=== PATIENT | female | born 1965 | race Caucasian/White ===

== ENCOUNTER 2018-01-19 15:54 | Emergency (ER) | payer OTHER, SELFPAY ==
[2018-01-19 16:04] VITALS: BP 136/80; PULSE 82; RESP 20; TEMP 36.6; O2SAT 98; BMI 26.4
--- NOTE | 2018-01-19 16:53 | ED_ITS ---
HPI - Eye Problem General Chief complaint: Eye Problems Stated complaint: painful rt eye x4 days Time Seen by Provider: 01/19/18 16:52 Source: patient Mode of arrival: ambulatory Limitations: no limitations History of Present Illness HPI Narrative: Patient is a 52-year-old female who presents with 4 days of right eye irritation. She is actually sent in from the walk-in clinic concern for preseptal or orbital cellulitis. She initially had some discharge and eye irritation however now she has surrounding erythema and mild swelling. She denies any blurry vision or double vision she does were glasses. chief complaint: eye pain and eye redness Onset (ago): day(s) (4) Related Data Home Medications Medication Instructions Recorded Confirmed Control Pill ( Control) 1 tab PO EVERY DAY #0 12/18/07 01/19/18 Topiramate (Topamax) 50 mg PO *Q DAY #0 12/18/07 01/19/18 Previous Rx's Medication Instructions Recorded erythromycin 0.5 inch EYE-RIGHT Q4HRWA 7 Days 01/19/18 #3.5 gram sulfamethoxazole-trimethoprim 1 tab PO BID 5 Days #20 tab 01/19/18 [Bactrim DS] tramadol 50 mg PO Q6H PRN #10 tab 01/19/18 Allergies Allergy/AdvReac Type Severity Reaction Status Date / Time Penicillins Allergy Severe anaphylaxis Verified 01/19/18 17:19 Review of Systems Review of Systems All systems reviewed & are unremarkable except as noted in HPI and below Constitutional Denies chills, Denies fever(s), Denies lethargy and Denies weakness Eyes Reports as per HPI ENT Ears, Nose, Mouth, and Throat: Denies change in voice, Denies neck pain and Denies sore throat Cardiovascular Denies chest pain, Denies irregular heart rhythm, Denies lightheadedness, Denies palpitations, Denies dyspnea, Denies dyspnea on exertion and Denies orthopnea Respiratory Denies cough, Denies dyspnea, Denies dyspnea on exertion and Denies wheezing Gastrointestinal Gastrointestinal: Denies abdominal pain, Denies change in bowel habits, Denies diarrhea, Denies nausea and Denies vomiting Genitourinary Denies hematuria, Denies flank pain, Denies urinary incontinence and Denies urinary urgency Musculoskeletal Denies neck pain Integumentary/Breasts Reports as per HPI and Reports erythema Neurologic Denies weakness Endocrine Denies palpitations Allergic/Immunologic Denies wheezing PFSH Medical History Healthy adult (Acute) Social History Smoking Status: Current every day smoker Exam Initial Vital Signs Initial Vital Signs: Vital Signs Temperature 97.9 F 01/19/18 16:04 Pulse Rate 82 01/19/18 16:04 Respiratory Rate 20 01/19/18 16:04 Blood Pressure 136/80 01/19/18 16:04 Pulse Oximetry 98 01/19/18 16:04 GENERAL: Well-appearing, well-nourished and in no acute distress. HEENT: Head atraumatic,EOMI, pupils reactive, mild erythema or periorbital all right eye. Mild swelling. No ptosis. Some tenderness superiorly while looking down but no obvious swelling CARDIOVASCULAR: Regular rate and rhythm without murmurs, rubs or gallops. RESPIRATORY: Breath sounds equal bilaterally, no wheezes rales or rhonchi. ABDOMEN: Soft, nontender. Normoactive bowel sounds all 4 quadrants. No guarding or rebound. EXTREMITIES: Normal range of motion, no clubbing or edema. Neurovascularly intact NEUROLOGICAL: Alert and oriented x4.Normal gait and speech. Cranial nerves II through XII grossly intact. SKIN: Warm, dry, no laceration, no petechiae, no rashes or lesions. Eyes Eyelids: eyelid abnormality right upper eyelid erythema, lid margins crusty and scaly and swelling; with no ptosis and right lower eyelid erythema, lid margins crusty/salty and swelling Conjunctivae: conjunctival abnormality right subconjunctival hemorrhage Cornea: corneas normal and fluorescein used (Right eye is stained with fluorescein) Pupils: PERRL EOM: EOM intact bilaterally Course Orders Ordered: Discontinued Medications Erythromycin (Erythromycin Ophth Oint) 1 applic EYE-RIGHT NOW ONE Stop: 01/19/18 18:12 Last Admin: 01/19/18 18:52 Dose: 1 applic Levofloxacin (Levaquin) 750 mg in 150 mls @ 100 mls/hr IV NOW ONE Stop: 01/19/18 18:38 Last Admin: 01/19/18 17:40 Dose: 100 mls/hr Sodium Chloride (Normal Saline 0.9%) 1,000 mls @ 1,000 mls/hr IV BOLUS ONE Stop: 01/19/18 18:08 Last Infusion: 01/19/18 18:53 Dose: 0 mls/hr Admin: 01/19/18 17:30 Dose: 1,000 mls/hr Ketorolac Tromethamine (Toradol) 30 mg IV NOW ONE Stop: 01/19/18 17:39 Last Admin: 01/19/18 17:39 Dose: 30 mg Proparacaine HCl (Parcaine 0.5% Ophth Fiona) 1 drops EYE-RIGHT NOW ONE Stop: 01/19/18 17:44 Last Admin: 01/19/18 17:44 Dose: 1 drop Tramadol HCl (Ultram 50mg Prepack) 1 bottle MISC SEEINSTR ONE Stop: 01/19/18 18:24 Last Admin: 01/19/18 18:52 Dose: 1 bottle Vital Signs - 8 hr 01/19/18 16:04 Temperature 97.9 F Pulse Rate 82 Respiratory Rate 20 Blood Pressure 136/80 Pulse Oximetry 98 MDM - Eye Problem Lab Data Attestation: I reviewed the patient's lab results. Result diagrams: 01/19/18 17:28 01/19/18 17:28 Lab Results 01/19/18 01/19/18 01/19/18 Range/Units 17:28 17:28 17:28 WBC 7.4 (4.5-11.0) X10^3/uL RBC 4.42 (4.0-5.2) X10^6/uL Hgb 14.6 (12.0-16.0) g/dL Hct 42.3 (36-46) % MCV 95.7 (80-100) fL MCH 33.0 (26-34) PG MCHC 34.5 (30-36) % RDW 13.6 (11.6-14.8) % Plt Count 247 (150-400) X10^3/uL Neut % (Auto) 55.9 (50-75) % Lymph % (Auto) 27.0 (25-40) % [place] % (Auto) 12.0 (3-14) % Eos % (Auto) 4.4 H (2-4) % Baso % (Auto) 0.7 (0-2) % Neut # (Auto) 4100 (6068-7962) /uL Sodium 141 (137-145) mmol/L Potassium 3.7 (3.4-5.1) mmol/L Chloride 103 (98-107) mmol/L Carbon Dioxide 26 (22-32) mmol/L BUN 10 (7-17) mg/dL Creatinine 0.60 (0.52-1.04) mg/dL Estimated GFR > 60.0 (>60) mL/min BUN/Creatinine Ratio 16.7 (6-22) Glucose 105 H (70-100) mg/dL Lactate 0.7 (0.7-2.1) mmol/L Calcium 9.7 (8.4-10.2) mg/dL [facility] Narrative Medical decision making narrative: Patient has an anaphylactic reaction to penicillin. At this time I think this is more preseptal cellulitis rather than orbital cellulitis. At this time will treat her with Bactrim to help cover for MRSA. Will hold on imaging for now. I discussed all findings with the patient, Education has been performed regarding treatment plan, diagnosis, warning signs and symptoms and all concerns have been addressed. Verbally agree with and understood all of the above. Discharge Plan Departure Patient Disposition: Home Clinical Impression: Preseptal cellulitis, Acute conjunctivitis, right eye Discharge Date/Time: 01/19/18 19:13 Interventions: ED Discharge Assessment Last Done: 01/19/18 19:13 Instructions: Conjunctivitis Activity Restrictions/Additional Instructions: *You have been diagnosed with preseptal cellulitis, right conjunctivitis *What to do: Tylenol, ibuprofen *Continue to take medications as directed: Faxed to [facility] in [place] Bactrim 1 pill twice a day for 10 days Tramadol 1 tablet every 6 hr if needed for severe pain Erythromycin ointment half an inch every 4 hr while awake for *Follow up with your primary care provider in 2-3 days *Return to ER if you should have worsening or redness increased pain, decreased vision or any new, worsening or concerning symptoms Prescriptions: New sulfamethoxazole-trimethoprim [Bactrim DS] 800-160 mg tablet 1 tab PO BID 5 Days Qty: 20 RF: 0 erythromycin 5 mg/gram (0.5 %) ointment 0.5 inch EYE-RIGHT Q4HRWA 7 Days Qty: 3.5 RF: 0 tramadol 50 mg tablet 50 mg PO Q6H PRN (Reason: pain) Qty: 10 RF: 0 No Action Control Pill ( Control) 1 tab PO EVERY DAY Qty: 0 RF: 0 Topiramate (Topamax) 50 mg PO *Q DAY Qty: 0 RF: 0
[2018-01-19] MEDS: SODIUM CHLORIDE 0.9% 1,000 ML 1000 ML IV (17:30)
[2018-01-19 17:36] LABS: Add Manual Diff / Slide Review NO; Basophils Percent Auto 0.7 % (0-2); Eosinophils Percent Auto 4.4 % (2-4); Hematocrit 42.3 % (36-46); Hemoglobin 14.6 g/dL (12.0-16.0); Mean Corpuscular HGB Conc 34.5 % (30-36); Mean Corpuscular Volume 95.7 fL (80-100); Neutrophils Absolute Auto 4100 /uL (3000-5900); Neutrophils Percent Auto 55.9 % (50-75); Platelet Count 247 X10^3/uL (150-400); Red Blood Cell Count 4.42 X10^6/uL (4.0-5.2); Red Cell Distribution Width 13.6 % (11.6-14.8); White Blood Cell Count 7.4 X10^3/uL (4.5-11.0)
[2018-01-19] MEDS: KETOROLAC 60 MG/2 ML VIAL 30 MG IV (17:39)
[2018-01-19] MEDS: levoFLOXacin 750 MG/150 ML PIGGYBACK 100 MG IV (17:40)
[2018-01-19] MEDS: PROPARACAINE 0.5% OPHTH SOL 1 DROPS EYE-RIGHT (17:44)
[2018-01-19 17:52] LABS: BUN Creatinine Ratio 16.7 (6-22); Blood Urea Nitrogen 10 mg/dL (7-17); Calcium 9.7 mg/dL (8.4-10.2); Carbon Dioxide 26 mmol/L (22-32); Chloride 103 mmol/L (98-107); Estimated Glomerular Filt Rate > 60.0 mL/min (>60); Glucose 105 mg/dL (70-100); HEMOLYSIS < 15 (0-50); Lactate (Lactic Acid) 0.7 mmol/L (0.7-2.1); Potassium 3.7 mmol/L (3.4-5.1); Sodium 141 mmol/L (137-145)
[2018-01-19 18:04] VITALS: BP 139/71; PULSE 75; RESP 17; O2SAT 99
[2018-01-19] MEDS: ERYTHROMYCIN OPHTH 1 GM OINT 1 APPLIC EYE-RIGHT (18:52)
[2018-01-19] MEDS: TRAMADOL 50 MG PREPACK 1 BOTTLE MISC (18:52)
[2018-01-19 19:13] VITALS: BP 124/91; PULSE 70; RESP 18; O2SAT 98
--- NOTE | 2018-02-03 15:53 | PC.NURSE ---
late entry. levaquin infused at 1840 without incident. tolerated well no adverse reactions.
== END 2018-01-19 19:13 | disposition home or self-care (01) ==
PROVIDERS: Emergency Provider Emergency Medicine
DX: L03.213 Periorbital cellulitis (principal); H10.31 Unspecified acute conjunctivitis, right eye
CPT/HCPCS: 36415; 36591; 80048; 83605; 85025; 87040; 96365; 96375; 99283; 99284; J1885; J1956

== ENCOUNTER → 2022-07-19 10:31 | Outpatient (CLI) | payer OTHER, SELFPAY | PROVIDERS: Visit Provider Nurse Practitioner Family | DX: L02.91 Cutaneous abscess, unspecified (principal) | CPT/HCPCS: 87070; 87075; 87205 ==

== ENCOUNTER 2024-01-05 13:29 | Emergency (ER) | payer OTHER, SELFPAY ==
[2024-01-05] VITALS (7 sets, daily range): BP systolic 133–147; BP diastolic 65–86; PULSE 77–99; RESP 19–21; TEMP 36.9; O2SAT 95–97; BMI 28.1
--- NOTE | 2024-01-05 13:53 | ED.HEATRA ---
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 She reports she was out sitting outside on the patio stood up in the dog tripped her hitting her head on the right side. No loss of consciousness no nausea or vomiting. However since then she has been quite dizzy. She does not think that she was dizzy or having issues before she fell. She is relatively forgetful daughter says this is normal. She has no focal deficits she did have hematoma on the right side. No visual changes. She denies any chest pain or palpitations. Daughter reports that she has not with her body either. She denies any neck pain numbness tingling weakness Related Data Home Medications Medication Instructions Recorded Confirmed Control Pill ( Control) 1 tab PO EVERY DAY ##0 12/18/07 07/19/22 Topiramate (Topamax) 50 mg PO *Q DAY ##0 12/18/07 07/19/22 Previous Rx's Medication Instructions Recorded tramadol 50 mg tablet 50 mg PO Q6H PRN pain #10 tabs 01/19/18 ondansetron 4 mg disintegrating 4 mg PO Q6-8H PRN nausea and 04/27/18 tablet vomiting #30 tabs sumatriptan succinate 25 mg tablet 25 mg PO ONCE #60 tabs 04/27/18 Allergies Allergy/AdvReac Type Severity Reaction Status Date / Time Penicillins Allergy Severe anaphylaxis Verified 07/19/22 10:01 Patient History Medical History (Updated 01/05/24 @ 15:31 by Marti Suarez DO) Healthy adult Social History Smoking Status: Current every day smoker Smoking Status: Current every day smoker alcohol intake frequency: holidays/special occasions only Substance Use Type: marijuana Exam Initial Vital Signs Initial Vital Signs: Vital Signs Pulse Rate 99 H 01/05/24 13:34 Blood Pressure 147/86 H 01/05/24 13:34 Pulse Oximetry 95 01/05/24 13:34 GENERAL: Well-appearing 58-year-old female HEENT: Head atraumatic,EOMI, pupils reactive, no nystagmus face symmetric, moist mucous membranes NECK: No vertebral tenderness no step-off full range of motion CARDIOVASCULAR: Regular rate and rhythm without murmurs, rubs or gallops. RESPIRATORY: Breath sounds equal bilaterally, no wheezes rales or rhonchi. ABDOMEN: Soft, nontender. Normoactive bowel sounds all 4 quadrants. No guarding or rebound. EXTREMITIES: Normal range of motion, no clubbing or edema. Neurovascularly intact NEUROLOGICAL: Alert and oriented x2.Normal gait and speech. Cranial nerves II through XII grossly intact. Good [id number], good [id number], strength equal bilaterally, no dysarthria or aphasia, sensation in tact to soft touch bilaterally, no visual changes, no facial droop SKIN: Warm, dry, no laceration, no petechiae, no rashes or lesions. Scores NIH Stroke Scale Level of Conciousness: Alert, keenly responsive Ask month/age: Answers both questions correctly. Open/close eyes, close hand: Performs both tasks correctly Best gaze horizontal: Normal Visual sen: No visual loss Facial palsy: Normal symetrical movement Left arm drift: No drift for full 10 sec Right arm drift: No drift for full 10 sec Left leg drift: No drift for full 5 sec Right leg drift: No drift for full 5 sec Limb ataxia: Absent Sensory on face/arms/legs: Normal, no sensory loss Best language: No aphasia, normal Dysarthria: Normal Extinction or inattention: No abnormality Total NIH Stroke scale score: 0 Course Orders Ordered: ED Orders 01/05/24 14:05 CT head/brain wo con Stat XR chest 1V Stat Complete Blood Count AUTO DIFF Stat Comprehensive Metabolic Panel Stat Lipase Stat Troponin & CK Cardiac Panel Stat EKG-12 Lead Stat Sodium Chloride (Normal Saline 0.9%) 1,000 mls @ 1,000 mls/hr IV BOLUS ONE Stop: 01/05/24 15:35 Last Infusion: 01/05/24 15:29 Dose: Infused Documented By: Admin: 01/05/24 14:48 Dose: 1,000 mls/hr Documented By: [place] Vital Signs Vital signs: Vital Signs - 8 hr 01/05/24 13:34 01/05/24 13:34 01/05/24 13:38 Temperature 98.5 F Pulse Rate 99 H 95 H Respiratory Rate 20 Blood Pressure 147/86 H 147/86 H Pulse Oximetry 95 97 Oxygen Delivery Method Room Air 01/05/24 14:00 01/05/24 14:30 01/05/24 14:49 Temperature Pulse Rate 88 82 81 Respiratory Rate Blood Pressure Pulse Oximetry 96 96 96 Oxygen Delivery Method 01/05/24 14:49 01/05/24 15:00 01/05/24 15:01 Temperature Pulse Rate 77 Respiratory Rate 21 Blood Pressure 134/65 133/69 Pulse Oximetry 96 Oxygen Delivery Method 01/05/24 15:01 Temperature Pulse Rate 77 Respiratory Rate 19 Blood Pressure Pulse Oximetry 97 Oxygen Delivery Method MDM - Head Injury Lab Data 01/05/24 14:30 01/05/24 14:30 Labs: Lab Results 01/05/24 Range/Units 14:30 WBC 7.5 (4.5-11.0) X10^3/uL RBC 4.19 (4.0-5.2) X10^6/uL Hgb 12.9 (12.0-16.0) g/dL Hct 38.7 (36-46) % MCV 92.3 (80-100) fL MCH 30.8 (26-34) PG MCHC 33.3 (30-36) % RDW 14.5 (11.6-14.8) % Plt Count 272 (150-400) X10^3/uL Neut % (Auto) 58.2 (50-75) % Lymph % (Auto) 27.7 (25-40) % [place] % (Auto) 7.0 (3-14) % Eos % (Auto) 6.1 H (2-4) % Baso % (Auto) 1.0 (0-2) % Neut # (Auto) 4400 (0981-5818) /uL Lymph # (Auto) 2100 (9318-0418) /uL [place] # (Auto) 500 (0-900) /uL Eos # (Auto) 500 H (0-450) /uL Baso # (Auto) 100 (0-100) /uL Sodium 137 (137-145) mmol/L Potassium 4.4 (3.4-5.1) mmol/L Chloride 105 (98-107) mmol/L Carbon Dioxide 27 (22-32) mmol/L BUN 8 (7-17) mg/dL Creatinine 0.70 (0.52-1.04) mg/dL Estimated GFR > 60 (>60) mL/min BUN/Creatinine Ratio 11.4 (6-22) Glucose 77 (70-100) mg/dL Calcium 9.4 (8.4-10.2) mg/dL Total Bilirubin 0.8 (0.2-1.3) mg/dL AST 37 H (14-36) IU/L ALT 18 (<35) IU/L Alkaline Phosphatase 86 (38-126) U/L Total Creatine Kinase 64 (30-135) U/L Troponin I < 0.012 (0.01-0.034) ng/mL Total Protein 7.8 (6.3-8.2) g/dL Albumin 4.6 (3.5-5.0) g/dL Globulin 3.2 (1.7-4.1) g/dL Albumin/Globulin Ratio 1.4 (1.0-2.8) Lipase 43 (23-300) U/L Imaging Data CT scan - head: Radiologist's Impression: PROCEDURE: CT HEAD/BRAIN WO CON INDICATIONS: fall dizzy confusion TECHNIQUE: Noncontrast 4.5 mm thick angled axial sections acquired from the foramen magnum to the vertex, with coronal and sagittal reformats. For radiation dose reduction, the following was used: automated exposure control, adjustment of mA and/or kV according to patient size. COMPARISON: None. FINDINGS: Image quality: Diagnostic. CSF spaces: Basal cisterns are patent. No extra-axial fluid collections. The ventricles are symmetric in size and shape. Brain: No intracranial bleeds or masses. There is cerebral volume loss for age, with resultant ventricular and sulcal prominence. There are periventricular and deep white matter chronic small vessel ischemic changes. There is intracranial internal carotid artery atherosclerosis. Skull and face: Calvarium and visualized facial bones appear intact, without suspicious lesions. Sinuses: Scattered ethmoid, frontal, sphenoid, and bilateral maxillary sinus mucosal thickening. Mastoid air cells are well aerated. IMPRESSION: 1. CT head without acute intracranial abnormalities or acute calvarial fractures. 2. Age-related senescent changes and sequela of chronic small vessel ischemic disease. 3. Pansinusitis. Dictated by: Wilfred Griggs M.D. on 01/05/2024 at 13:57 Chest x-ray: Radiologist's Impression: PROCEDURE: XR CHEST 1V INDICATIONS: confusion TECHNIQUE: One view of the chest was acquired. COMPARISON: None. FINDINGS: Surgical changes and devices: None. Lungs and pleura: Lungs are clear. No pleural effusions or pneumothorax. Mediastinum: Mediastinal contours appear normal. Heart size is normal. Bones and chest wall: No suspicious bony lesions. Overlying soft tissues appear unremarkable. IMPRESSION: No acute cardiopulmonary abnormality is seen. Dictated by: Wilfred Griggs M.D. on 01/05/2024 at 13:56 Approved by: Wilfred Griggs M.D. on 01/05/2024 at 13:57 ECG Data Attestation: I personally reviewed and interpreted this ECG as follows: Interpretation: Sinus rhythm rate 83 NE interval 146 QRS [address] changes priors to compare MDM Narrative Medical decision making narrative: Patient is a 58-year-old female history of TBI presenting today with dizzy dizziness after ground level fall. She has difficult time at baseline with month and year. She lives alone and is independent. Her daughter checks on her regularly. He has not had vomiting she did have hematoma on the right side of her head with a has gone down significantly no significant swelling. She reports ongoing dizziness. She does not think she was dizzy prior to the fall she thinks she dizzy only after the fall but sometimes her memory is unreliable Blood work reviewed no leukocytosis no anemia no electrolyte abnormality no SOLIS and troponin is negative EKG shows a sinus rhythm Head CT no intracranial hemorrhage or fracture Chest x-ray is negative Patient overall appears well neurologically she is intact. Daughter at bedside they live very close the patient does live independently. Patient is ambulatory in the ED without issue. At this time suspect more concussion and ongoing TV eye issues causing dizziness rather than other etiology. I do not suspect a cardiac issue. She has no neck pain I do not suspect dissection. She can follow-up with primary Discharge Plan Departure Patient Disposition: Home Clinical Impression: Closed head injury Instructions: DI for Closed Head Injury Activity Restrictions/Additional Instructions: *You have been diagnosed with concussion *What to do: At this time increase activity as tolerated. Please stay hydrated.. May consider physical therapy if you continue to have issues *Continue to take medications as directed *Follow up with your primary care provider in 2-3 days or call [phone] *Return to ER if you should have increasing weakness falls confusion or any new, worsening or concerning symptoms Prescriptions: No Action ondansetron 4 mg tablet,disintegrating 4 mg PO Q6-8H PRN (Reason: nausea and vomiting) Qty: 30 0RF sumatriptan succinate 25 mg tablet 25 mg PO ONCE Qty: 60 0RF Rx Instructions: may repeat once in >=2 hours Control Pill ( Control) 1 tab PO EVERY DAY Qty: 0 Topiramate (Topamax) 50 mg PO *Q DAY Qty: 0 tramadol 50 mg tablet 50 mg PO Q6H PRN (Reason: pain) Qty: 10 0RF Referrals: Miscellaneous,Doctor, MD [Primary Care Provider] - Stand Alone Forms: Patient Portal/API
--- NOTE | 2024-01-05 14:05 | EKG_ITS ---
[address] [address] Test Date: 2024-01-05 Pat Name: Judith Priest Department: [facility] Room: Gender: Female Doorperson: LORRAINE : 1965 Requested By: Order Number: [id number] Reading MD: Sami Mota Measurements Intervals [place] Rate: 83 P: 28 ME: 146 QRS: 36 QRSD: 74 T: 57 QT: 374 QTc: 439 Interpretive Statements Normal sinus rhythm Low voltage QRS Electronically Signed On 01-06-2024 7:16:57 PDT by Sami Mota
--- NOTE | 2024-01-05 14:05 | DI.RAD.S_ITS ---
PROCEDURE: XR CHEST 1V INDICATIONS: confusion TECHNIQUE: One view of the chest was acquired. COMPARISON: None. FINDINGS: Surgical changes and devices: None. Lungs and pleura: Lungs are clear. No pleural effusions or pneumothorax. Mediastinum: Mediastinal contours appear normal. Heart size is normal. Bones and chest wall: No suspicious bony lesions. Overlying soft tissues appear unremarkable. IMPRESSION: No acute cardiopulmonary abnormality is seen. Dictated by: Wilfred Griggs M.D. on 01/05/2024 at 13:56 Approved by: Wilfred Griggs M.D. on 01/05/2024 at 13:57
--- NOTE | 2024-01-05 14:05 | DI.CT.S_ITS ---
PROCEDURE: CT HEAD/BRAIN WO CON INDICATIONS: fall dizzy confusion TECHNIQUE: Noncontrast 4.5 mm thick angled axial sections acquired from the foramen magnum to the vertex, with coronal and sagittal reformats. For radiation dose reduction, the following was used: automated exposure control, adjustment of mA and/or kV according to patient size. COMPARISON: None. FINDINGS: Image quality: Diagnostic. CSF spaces: Basal cisterns are patent. No extra-axial fluid collections. The ventricles are symmetric in size and shape. Brain: No intracranial bleeds or masses. There is cerebral volume loss for age, with resultant ventricular and sulcal prominence. There are periventricular and deep white matter chronic small vessel ischemic changes. There is intracranial internal carotid artery atherosclerosis. Skull and face: Calvarium and visualized facial bones appear intact, without suspicious lesions. Sinuses: Scattered ethmoid, frontal, sphenoid, and bilateral maxillary sinus mucosal thickening. Mastoid air cells are well aerated. IMPRESSION: 1. CT head without acute intracranial abnormalities or acute calvarial fractures. 2. Age-related senescent changes and sequela of chronic small vessel ischemic disease. 3. Pansinusitis. Dictated by: Wilfred Griggs M.D. on 01/05/2024 at 13:57 Approved by: Wilfred Griggs M.D. on 01/05/2024 at 13:59
[2024-01-05 14:40] LABS: Add Manual Diff / Slide Review NO; Basophils Absolute Auto 100 /uL (0-100); Eosinophils Absolute Auto 500 /uL (0-450); Eosinophils Percent Auto 6.1 % (2-4); Hematocrit 38.7 % (36-46); Hemoglobin 12.9 g/dL (12.0-16.0); Lymphocytes Absolute Auto 2100 /uL (1100-4500); Lymphocytes Percent Auto 27.7 % (25-40); Mean Corpuscular HGB Conc 33.3 % (30-36); Mean Corpuscular Hemoglobin 30.8 PG (26-34); Mean Corpuscular Volume 92.3 fL (80-100); Monocytes Absolute Auto 500 /uL (0-900); Neutrophils Absolute Auto 4400 /uL (1500-7000); Neutrophils Percent Auto 58.2 % (50-75); Platelet Count 272 X10^3/uL (150-400); Red Blood Cell Count 4.19 X10^6/uL (4.0-5.2); Red Cell Distribution Width 14.5 % (11.6-14.8); White Blood Cell Count 7.5 X10^3/uL (4.5-11.0)
[2024-01-05] MEDS: SODIUM CHLORIDE 0.9% 1,000 ML 1000 ML IV (14:48)
[2024-01-05 14:52] LABS: Alanine Aminotransferase 18 IU/L (<35); Albumin 4.6 g/dL (3.5-5.0); Albumin Globulin Ratio 1.4 (1.0-2.8); Alkaline Phosphatase 86 U/L (38-126); Aspartate Aminotransferase 37 IU/L (14-36); BUN Creatinine Ratio 11.4 (6-22); Bilirubin Total 0.8 mg/dL (0.2-1.3); Blood Urea Nitrogen 8 mg/dL (7-17); Calcium 9.4 mg/dL (8.4-10.2); Carbon Dioxide 27 mmol/L (22-32); Chloride 105 mmol/L (98-107); Creatine Kinase 64 U/L (30-135); Estimated Glomerular Filt Rate > 60 mL/min (>60); Globulin 3.2 g/dL (1.7-4.1); Glucose 77 mg/dL (70-100); Lipase 43 U/L (23-300); Potassium 4.4 mmol/L (3.4-5.1); Sodium 137 mmol/L (137-145); Total Protein 7.8 g/dL (6.3-8.2)
[2024-01-05 14:54] LABS: HEMOLYSIS 58 (0-50)
[2024-01-05 15:04] LABS: Troponin I < 0.012 ng/mL (0.01-0.034)
== END 2024-01-05 15:29 | disposition home or self-care (01) ==
PROVIDERS: Emergency Provider Emergency Medicine
DX: S09.90XA Unspecified injury of head, initial encounter (principal); R29.700 NIHSS score 0; R41.0 Disorientation, unspecified; R42 Dizziness and giddiness; W01.0XXA Fall on same level from slipping, tripping and stumbling without subsequent striking against object, initial encounter
CPT/HCPCS: 36415; 70450; 71045; 80053; 82550; 83690; 84484; 85025; 93005; 96360; 99284

== ENCOUNTER 2024-03-17 22:36 | Observation (INO) | payer OTHER, SELFPAY ==
[2024-03-17 22:39] VITALS: BP 183/95; PULSE 84; RESP 18; TEMP 36.9; O2SAT 98; BMI 25.8
--- NOTE | 2024-03-17 22:48 | DI.RAD.S_ITS ---
PROCEDURE: XR CHEST 1V INDICATIONS: Possible stroke TECHNIQUE: One view of the chest was acquired. COMPARISON: [facility], CR, XR CHEST 1V, 01/05/2024, 14:05. FINDINGS: Surgical changes and devices: None. Lungs and pleura: Lungs are clear. No pleural effusions or pneumothorax. Mediastinum: Mediastinal contours appear normal. Heart size is normal. Bones and chest wall: No suspicious bony lesions. Overlying soft tissues appear unremarkable. IMPRESSION: No acute pulmonary process. Dictated by: Marlene Biswas M.D. on 03/17/2024 at 23:33 Approved by: Marlene Biswas M.D. on 03/17/2024 at 23:33
--- NOTE | 2024-03-17 22:48 | DI.CT.S_ITS ---
PROCEDURE: CT STROKE INDICATIONS: Positive BE-FAST, Stroke symptoms TECHNIQUE: Noncontrast 4.5 mm thick angled axial sections acquired from the foramen magnum to the vertex, with coronal reformats. For radiation dose reduction, the following was used: automated exposure control, adjustment of mA and/or kV according to patient size. COMPARISON: [facility], CT, CT ANGIO HEAD AND NECK, 03/17/2024, 23:00. FINDINGS: Image quality: Diagnostic. CSF spaces: Basal cisterns are patent. No extra-axial fluid collections. Ventricles are normal in size and shape. Brain: No midline shift. No intracranial masses or hemorrhage. Velásquez-white matter interface is normal. Skull and face: Calvarium and visualized facial bones are intact, without suspicious lesions. Sinuses: Visualized sinuses and mastoids are clear. IMPRESSION: No acute intracranial pathology. The above findings were discussed with Dr. Jen Cannon on 03/17/2024 at 11:28 p.m. This study fulfills neurological imaging criteria for inclusion or exclusion of acute stroke therapies based on available published neurological imaging guidelines. Dictated by: Marlene Biswas M.D. on 03/17/2024 at 23:28 Approved by: Marlene Biswas M.D. on 03/17/2024 at 23:29
--- NOTE | 2024-03-17 22:50 | DI.CT.S_ITS ---
PROCEDURE: CT ANGIO HEAD AND NECK INDICATIONS: confused, fall 2 days, ? hit head, word loss, balance issue TECHNIQUE: After the administration of intravenous contrast, 1 mm thick sections acquired from the aortic arch through the [place]. 3-dimensional socfqsp-hsowwtyjt-dqspilkcvu (MIP) and/or volume rendering reformats were acquired of the central intracranial vasculature and neck separately. For radiation dose reduction, the following was used: automated exposure control, adjustment of mA and/or kV according to patient size. COMPARISON: [facility], CT, CT STROKE, 03/17/2024, 23:00. FINDINGS: Image quality: Diagnostic. BRAIN: See separately dictated CT head report of 03/17/2024. HEAD CT ANGIOGRAPHY: Anterior circulation: Intracranial internal carotid arteries are normal in size and flow. The flow within the paired anterior cerebral arteries is normal and symmetric. The flow within the middle cerebral arteries is normal and symmetric. The anterior communicating artery is seen. No aneurysms are seen. Posterior circulation: Left vertebral artery. Visualized portions of the vertebral arteries demonstrate normal caliber, and join to form a normal appearing basilar artery. Flow within the posterior cerebral arteries is normal and symmetric. No aneurysms are seen. NECK CT ANGIOGRAPHY: Carotid system: The great vessels demonstrate a conventional anatomy as they arise from the aortic arch. The origins of the common carotid arteries appear patent. The common carotid arteries demonstrate normal caliber and courses. The bifurcation regions are both widely patent. Approximate 50% narrowing at the origin the right internal carotid artery. Posterior circulation: The origins of the vertebral arteries both appear widely patent. The more superior extracranial portions of both vertebral arteries also demonstrate normal courses and calibers. They join to form a normal appearing basilar artery. Soft tissues: Visualized neck soft tissues demonstrate no suspicious abnormalities. Scattered mucosal thickening is present within the sinuses. Bones: No suspicious bony lesions. Visualized cervical spine appears normally aligned. IMPRESSION: Approximate 50% narrowing at the origin of the right internal carotid artery. Any quantitative measurements of stenosis were performed using NASCET criteria. Dictated by: Marlene Biswas M.D. on 03/17/2024 at 23:30 Approved by: Marlene Biswas M.D. on 03/17/2024 at 23:32
--- NOTE | 2024-03-17 22:52 | PC.NURSE ---
Pt ambulatory to restroom without difficulty or assistance
--- NOTE | 2024-03-17 22:58 | PC.NURSE ---
Pt to CT via wheel chair with tech
[2024-03-17 23:08] LABS: Add Manual Diff / Slide Review NO; Basophils Absolute Auto 100 /uL (0-100); Basophils Percent Auto 0.6 % (0-2); Eosinophils Absolute Auto 600 /uL (0-450); Eosinophils Percent Auto 6.3 % (2-4); Hematocrit 39.1 % (36-46); Lymphocytes Absolute Auto 2800 /uL (1100-4500); Lymphocytes Percent Auto 29.9 % (25-40); Mean Corpuscular HGB Conc 33.1 % (30-36); Mean Corpuscular Hemoglobin 30.6 PG (26-34); Mean Corpuscular Volume 92.3 fL (80-100); Monocytes Absolute Auto 600 /uL (0-900); Monocytes Percent Auto 6.9 % (3-14); Neutrophils Absolute Auto 5200 /uL (1500-7000); Neutrophils Percent Auto 56.3 % (50-75); Platelet Count 305 X10^3/uL (150-400); Red Blood Cell Count 4.24 X10^6/uL (4.0-5.2); Red Cell Distribution Width 14.8 % (11.6-14.8); White Blood Cell Count 9.3 X10^3/uL (4.5-11.0)
[2024-03-17 23:08] LABS: Ur Creatinine Normal (Normal); Ur Specific Gravity Normal (Normal); Urine Amphetamines Negative (Negative); Urine Barbiturates Negative (Negative); Urine Benzodiazepines Negative (Negative); Urine Cocaine Negative (Negative); Urine MDMA Negative (Negative); Urine Methadone Negative (Negative); Urine Methamphetamines Negative (Negative); Urine Opiates Negative (Negative); Urine Oxycodone Negative (Negative); Urine Phencyclidine Negative (Negative); Urine THC Negative (Negative); Urine Tricyclic Antidepressant Positive (Negative); Urine pH Normal (Normal)
--- NOTE | 2024-03-17 23:15 | PC.NURSE ---
Pt ambulatory to restroom without difficulty or assistance, daughter walked with.
[2024-03-17 23:16] LABS: INR 0.9 (0.9-1.3); Prothrombin Time 10.4 SECONDS (9.4-12.5)
[2024-03-17 23:18] LABS: PTT Partial Thromboplastin Tim 41 SECONDS (25.1-36.5)
[2024-03-17 23:20] LABS: Alanine Aminotransferase 15 IU/L (<35); Albumin 4.3 g/dL (3.5-5.0); Albumin Globulin Ratio 1.3 (1.0-2.8); Alkaline Phosphatase 76 U/L (38-126); Aspartate Aminotransferase 36 IU/L (14-36); BUN Creatinine Ratio 18.8 (6-22); Bilirubin Total 0.5 mg/dL (0.2-1.3); Blood Urea Nitrogen 15 mg/dL (7-17); Calcium 9.3 mg/dL (8.4-10.2); Carbon Dioxide 28 mmol/L (22-32); Chloride 106 mmol/L (98-107); Creatine Kinase 67 U/L (30-135); Estimated Glomerular Filt Rate > 60 mL/min (>60); Globulin 3.3 g/dL (1.7-4.1); Glucose 103 mg/dL (70-100); Magnesium 1.8 mg/dL (1.6-2.3); Sodium 138 mmol/L (137-145); Total Protein 7.6 g/dL (6.3-8.2)
--- NOTE | 2024-03-17 23:20 | EKG_ITS ---
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
[2024-03-17 23:23] LABS: HEMOLYSIS 98 (0-50); Potassium 4.3 mmol/L (3.4-5.1)
[2024-03-17 23:32] LABS: Troponin I < 0.012 ng/mL (0.01-0.034)
[2024-03-18] VITALS (7 sets, daily range): BP systolic 135–170; BP diastolic 73–106; PULSE 75–84; RESP 16–25; TEMP 36.4; O2SAT 95–97; BMI 25.8
--- NOTE | 2024-03-18 00:14 | ED_ITS ---
HPI - Altered Mental Status General Chief Complaint: Altered Mental Status Stated Complaint: Disoriented, Unable to form sentences Time Seen by Provider: 03/17/24 22:50 Source: patient and family Mode of arrival: Ambulatory History of Present Illness HPI narrative: 58-year-old female with a history of multiple TBIs presents with complaint being more confused, altered some dysarthria and being more off balance. Patient presents with her daughter. She sometimes has a little bit of difficulty with speech but her daughter describes something having to stop senior living through a sentence sort of forget where she was at and then we will either continue on or move onto a different topic. She states she was not even really been able to get through words, describes him as being more slurred that she was trouble even completing basic information. She was noted patient's gait she has been varying towards the left her gait seems different. Neither 1 appreciated any weakness laterally right versus left. Patient denies headaches, no chest pain or shortness of breath. No nausea or vomiting no issues with bowel movements or urination no incontinence. No numbness tingling of the extremities. No fevers chills cold cough or congestion. Patient does have a history of TBI daughter notes she has had some slow changes in mentation over time has been falling once annually with [facility]. She thought her mom was maybe having a little bit of a bad day but has been much worse than typical for the past 2 days. She does take amitriptyline reportedly takes olanzapine as well patient states has not taken any extra medications. Has not allergy to penicillin. Does smoke tobacco about a pack and a half weekly. No regular alcohol. No recreational drugs. Daughter notes that patient did have a fall in the last week spent about an hour so in the floor she would was weak and could not get off the floor. Has been ambulating today. Related Data Home Medications Medication Instructions Recorded Confirmed Control Pill ( Control) 1 tab PO EVERY DAY ##0 12/18/07 07/19/22 Topiramate (Topamax) 50 mg PO *Q DAY ##0 12/18/07 07/19/22 Previous Rx's Medication Instructions Recorded tramadol 50 mg tablet 50 mg PO Q6H PRN pain #10 tabs 01/19/18 ondansetron 4 mg disintegrating 4 mg PO Q6-8H PRN nausea and 04/27/18 tablet vomiting #30 tabs sumatriptan succinate 25 mg tablet 25 mg PO ONCE #60 tabs 04/27/18 Allergies Allergy/AdvReac Type Severity Reaction Status Date / Time Penicillins Allergy Severe anaphylaxis Verified 07/19/22 10:01 Review of Systems Review of Systems ROS Unobtainable: All systems reviewed & are unremarkable except as noted in HPI and below Patient History Medical History Healthy adult Social History Smoking Status: Current every day smoker Smoking Status: Current every day smoker tobacco type: cigarettes alcohol intake frequency: holidays/special occasions only Substance Use Type: marijuana Exam Narrative Exam Narrative: GEN: well nourished, well appearing female, alert and oriented x 3, patient appears to be in mild distress. HEENT: Atraumatic, pupils are equal round reactive to light, extraocular movements are intact, nares are clear, TMs are clear with no fluid, there is no conjunctival pallor. Throat is clear without any exudates, erythema, tonsillar enlargement or uvular deviation HEART: Regular rate and rhythm without murmur, clicks, rubs. No carotid bruits, pulses are equal in upper and lower extremities LUNGS:Lungs clear to auscultation, no wheezes, rales, crackles, chest moves symmetrically ABD:bowel sounds normal, soft, non-tender, no guarding, rebound, rigidity, no masses noted, no hepatosplenomegaly :No CVA tenderness MSCL: Non-tender, no muscle atrophy, muscles strength 5/5 upper and lower extremities, full range of motion. NEURO:CN 2-12 intact, sensation normal, reflexes 2/4 upper and lower extremities. No clonus, finger nose finger test normal in the right, patient has difficulty in the left but seems to be more related to command, heel jacobo test normal, patient has dysarthria as well as appears to be expressive aphasia. Initial Vital Signs Initial Vital Signs: Vital Signs Temperature 98.5 F 03/17/24 22:39 Pulse Rate 84 03/17/24 22:39 Respiratory Rate 18 03/17/24 22:39 Blood Pressure 183/95 H 03/17/24 22:39 Pulse Oximetry 98 03/17/24 22:39 Oxygen Delivery Method Room Air 03/17/24 22:39 Scores NIH Stroke Scale Level of Conciousness: Alert, keenly responsive Ask month/age: Answers both questions correctly. Open/close eyes, close hand: Performs both tasks correctly Best gaze horizontal: Normal Visual sen: No visual loss Facial palsy: Normal symetrical movement Left arm drift: No drift for full 10 sec Right arm drift: No drift for full 10 sec Left leg drift: No drift for full 5 sec Right leg drift: No drift for full 5 sec Limb ataxia: Present in one limb (seems more problem following command) Sensory on face/arms/legs: Normal, no sensory loss Best language: Mild to moderate, slurs some words Dysarthria: Mild to mod,some slurring Extinction or inattention: No abnormality Total NIH Stroke scale score: 3 Course Orders Ordered: ED Orders 03/17/24 22:48 CT Stroke Stat XR chest 1V Stat EKG-12 Lead Stat 03/17/24 22:50 CT angio head and neck Stat 03/17/24 22:57 Urine Drug Screen, Rapid Stat 03/17/24 23:00 Complete Blood Count AUTO DIFF Stat Comprehensive Metabolic Panel Stat Magnesium Stat PTT Partial Thromboplastin Bhargav Stat Prothrombin Time INR Stat Troponin & CK Cardiac Panel Stat 03/18/24 Basic Metabolic Panel Routine Complete Blood Count AUTO DIFF Routine 03/18/24 00:39 ETOH [Ethanol (ETOH)] Stat 03/18/24 00:40 Ammonia (NH3) Stat 03/18/24 01:23 Education, smoking cessation ONGOING 03/18/24 01:29 Consult to Occupational Therapy Evaluate & Treat Consult to Physical Therapy Evaluate & Treat 03/18/24 01:31 Consult to Speech Therapy Evaluate & Treat Acetaminophen (Acetaminophen 325 Mg Tablet) 650 mg PO Q6H PRN PRN Reason: Fever/Mild Pain (1-3) Aspirin (Aspirin Ec 81 Mg Tablet) 81 mg PO DAILY [facility] Heparin Sodium (Porcine) (Heparin 5,000 Unit/Ml Vial) 5,000 unit SUBCUT BID [facility] Sodium Chloride (Normal Saline 0.9%) 1,000 mls @ 100 mls/hr IV CONT DAWNA Last Admin: 03/18/24 01:47 Dose: 100 mls/hr Documented By: LS Naloxone HCl (Naloxone 0.4 Mg/Ml Vial) 0.2 mg IV Q2MIN PRN PRN Reason: Opiate Reversal Ondansetron HCl (Ondansetron 4 Mg/2 Ml Inj) 4 mg IV NOW PRN PRN Reason: Nausea And Vomiting Ondansetron HCl (Ondansetron 4 Mg/2 Ml Inj) 4 mg IV Q8HR PRN PRN Reason: Nausea And Vomiting Discontinued Medications Aspirin (Aspirin 81 Mg Chew Tab) 324 mg PO NOW ONE Stop: 03/18/24 01:29 Last Admin: 03/18/24 01:46 Dose: 324 mg Documented By: JEFFERSON Ondansetron HCl (Ondansetron 4 Mg Odt) 4 mg SL NOW PRN PRN Reason: Nausea And Vomiting Vital Signs Vital signs: Vital Signs - 8 hr 03/17/24 22:39 03/18/24 00:06 03/18/24 00:06 Temperature 98.5 F Pulse Rate 84 75 Respiratory Rate 18 17 Blood Pressure 183/95 H 154/82 H Pulse Oximetry 98 97 Oxygen Delivery Method Room Air Room Air 03/18/24 00:30 03/18/24 00:30 03/18/24 01:00 Temperature Pulse Rate 76 75 Respiratory Rate 25 H 18 Blood Pressure 170/81 H Pulse Oximetry 95 Oxygen Delivery Method 03/18/24 01:01 03/18/24 01:01 Temperature Pulse Rate 75 Respiratory Rate 17 Blood Pressure 149/76 H Pulse Oximetry 95 Oxygen Delivery Method Room Air MDM - Altered Mental Status Lab Data 03/17/24 23:00 03/17/24 23:00 Labs: Lab Results 03/17/24 03/17/24 03/18/24 Range/Units 22:57 23:00 00:40 WBC 9.3 (4.5-11.0) X10^3/uL RBC 4.24 (4.0-5.2) X10^6/uL Hgb 13.0 (12.0-16.0) g/dL Hct 39.1 (36-46) % MCV 92.3 (80-100) fL MCH 30.6 (26-34) PG MCHC 33.1 (30-36) % RDW 14.8 (11.6-14.8) % Plt Count 305 (150-400) X10^3/uL Neut % (Auto) 56.3 (50-75) % Lymph % (Auto) 29.9 (25-40) % [place] % (Auto) 6.9 (3-14) % Eos % (Auto) 6.3 H (2-4) % Baso % (Auto) 0.6 (0-2) % Neut # (Auto) 5200 (7046-0202) /uL Lymph # (Auto) 2800 (3275-9952) /uL [place] # (Auto) 600 (0-900) /uL Eos # (Auto) 600 H (0-450) /uL Baso # (Auto) 100 (0-100) /uL PT 10.4 (9.4-12.5) SECONDS INR 0.9 (0.9-1.3) APTT 41 H (25.1-36.5) SECONDS Sodium 138 (137-145) mmol/L Potassium 4.3 (3.4-5.1) mmol/L Chloride 106 (98-107) mmol/L Carbon Dioxide 28 (22-32) mmol/L BUN 15 (7-17) mg/dL Creatinine 0.80 (0.52-1.04) mg/dL Estimated GFR > 60 (>60) mL/min BUN/Creatinine Ratio 18.8 (6-22) Glucose 103 H (70-100) mg/dL Calcium 9.3 (8.4-10.2) mg/dL Magnesium 1.8 (1.6-2.3) mg/dL Total Bilirubin 0.5 (0.2-1.3) mg/dL AST 36 (14-36) IU/L ALT 15 (<35) IU/L Alkaline Phosphatase 76 (38-126) U/L Ammonia < 9 L (9-30) umol/L Total Creatine Kinase 67 (30-135) U/L Troponin I < 0.012 (0.01-0.034) ng/mL Total Protein 7.6 (6.3-8.2) g/dL Albumin 4.3 (3.5-5.0) g/dL Globulin 3.3 (1.7-4.1) g/dL Albumin/Globulin Ratio 1.3 (1.0-2.8) U Opiates 300ng/mL cut Negative (Negative) Ur Oxycodone Screen Negative (Negative) Urine Methadone Screen Negative (Negative) Ur Barbiturates Screen Negative (Negative) U Tricyclic Antidepress Positive H (Negative) Ur Phencyclidine Scrn Negative (Negative) Ur Amphetamines Screen Negative (Negative) U Methamphetamines Scrn Negative (Negative) Ur MDMA Scrn (Ecstasy) Negative (Negative) U Benzodiazepines Scrn Negative (Negative) Urine Cocaine Screen Negative (Negative) U Marijuana (THC) Screen Negative (Negative) Urine pH Normal (Normal) Urine Specific [place] Normal (Normal) Ethyl Alcohol < 10 ( - 10) mg/dL Ur Creatinine Normal (Normal) Point of Care Testing Glucose POC 101 Urine Dip Bedside Urine Glucose Negative Bedside Urine Bilirubin - Negative Bedside Urine Ketone - Negative Urine Specific [place] 1.015 Bedside Urine Occult Blood - Negative Bedside Urine pH 6.0 Bedside Urine Protein - Negative Bedside Urine Urobilinogen - Negative Bedside Urine Nitrite - Negative Bedside Urine Leukocytes - Negative Esterase ECG Data Attestation: I personally reviewed and interpreted this ECG as follows: Prior ECG tracings: available for review Interpretation: Normal sinus rhythm rate 80 OK 194 QRS 86 QTC of 435, no acute ST elevation or depression noted. Patient has prior from 01/05/2024 which appears similar. MDM Narrative Medical decision making narrative: 58-year-old female history of TBI with increasing altered mental status with word-finding difficulty and balance issues for the past 2 days. Had reported fall unwitnessed by family unclear patient did hit their head. Patient has NIH of 3 although had difficulty with lxwjzq-tatn-mflait with the left but seemed to be much more difficulty processing the command then actually perform any activity. Does appear to have dysarthria and aphasia. Patient has had 2 days' worth of symptoms if stroke she would be for outside window for tPA or code IR. Labs show white count of 9.3 hemoglobin of 13 platelets of 305 INR is normal PTT slightly elevated, electrolytes are appropriate, BUN 15 creatinine 0.80 glucose is 103 calcium is 9.3 LFTs are negative troponins less than 0.012. UDS is positive for tricyclics. Point of care urine is negative for nitrates or leukocyte esterase. ETOH is negative Ammonia is normal Head CT shows no acute intracranial pathology results called to myself by Dr. Johnson at 07/11/2027 CTA head and neck show approximate 50% narrowing of the origin of the right ICA. Chest x-ray shows no acute change. Spoke with Dr. Chacon, accepts for observation tele we will see patient. Discussed possible stroke versus other potential cause but no other clear source has been found. Has been 2 days' worth of symptoms with no resolution. Discharge Plan Departure Patient Disposition: Admitted as Observation Clinical Impression: Altered mental status Admit Date/Time: 03/18/24 01:31 Admit Provider: Jerry Chacon
[2024-03-18 00:57] LABS: Ammonia (NH3) < 9 umol/L (9-30)
[2024-03-18 00:57] LABS: Ethanol (ETOH) < 10 mg/dL
--- NOTE | 2024-03-18 01:08 | PC.NURSE ---
Ambulatory to restroom without difficulty or assistance. Daughter remains with patient.
[2024-03-18] MEDS: ASPIRIN 81 MG CHEW TAB 324 MG PO (01:46)
[2024-03-18] MEDS: SODIUM CHLORIDE 0.9% 1,000 ML 100 ML IV (01:47)
[2024-03-18 06:08] LABS: Add Manual Diff / Slide Review NO; Basophils Absolute Auto 0 /uL (0-100); Basophils Percent Auto 0.3 % (0-2); Eosinophils Absolute Auto 600 /uL (0-450); Eosinophils Percent Auto 8.9 % (2-4); Hematocrit 34.3 % (36-46); Hemoglobin 11.4 g/dL (12.0-16.0); Lymphocytes Absolute Auto 2400 /uL (1100-4500); Lymphocytes Percent Auto 33.7 % (25-40); Mean Corpuscular HGB Conc 33.4 % (30-36); Mean Corpuscular Hemoglobin 30.6 PG (26-34); Mean Corpuscular Volume 91.7 fL (80-100); Monocytes Absolute Auto 600 /uL (0-900); Monocytes Percent Auto 8.1 % (3-14); Neutrophils Absolute Auto 3500 /uL (1500-7000); Platelet Count 262 X10^3/uL (150-400); Red Blood Cell Count 3.74 X10^6/uL (4.0-5.2); Red Cell Distribution Width 14.6 % (11.6-14.8); White Blood Cell Count 7.1 X10^3/uL (4.5-11.0)
[2024-03-18 06:30] LABS: BUN Creatinine Ratio 16.2 (6-22); Blood Urea Nitrogen 12 mg/dL (7-17); Calcium 8.6 mg/dL (8.4-10.2); Carbon Dioxide 28 mmol/L (22-32); Chloride 108 mmol/L (98-107); Estimated Glomerular Filt Rate > 60 mL/min (>60); Glucose 86 mg/dL (70-100); HEMOLYSIS < 15 (0-50); Potassium 3.5 mmol/L (3.4-5.1); Sodium 139 mmol/L (137-145)
--- NOTE | 2024-03-18 06:54 | PM.HP.1 ---
History of Present Illness History of Present Illness Chief complaint: Disoriented, Unable to form sentences Narrative: 58 year-old female with past medical history of multiple TBI in the past presents with worsening confusion and slurred speech. Per the patient's daughters report, at baseline the patient does have some intermittent confusion from time to time. However two days ago the patient who lives alone at home was noted to sustained a fall. Patient daughter did come by and check and the patient report some left chest rib pain and admit that she hit her head but without any serious injury. The patient's daughter went back home and check on the patient today. However, today, the patient's daughter noticed that she was still confused with some slurred speech, word findings difficulty and along with some balance issues. Due to these ongoing symptoms, the patient's daughter decided to bring the patient into our ER for further evaluation. Otherwise there's no report any focal weakness or any serious injury. There's also no report any fever, chills, nausea, vomiting or diarrhea. In our emergency room, the patient was hemodynamically stable. NIH initial score was 3 per our ER physician assessment due to slurred speech and some poor coordination. CT and CTA of head and neck show no acute finding. Due to ongoing symptoms our physician requested admission to monitor overnight and if symptoms do not improve consider brain MRI in the morning. Note labs were all relatively benign including negative ammonia level. [facility] Medical History Healthy adult Social History household members: none Smoking Status: Current every day smoker alcohol intake: current Meds Home Medications and Allergies Home Medications Medication Instructions Recorded Confirmed Type Control Pill ( Control) 1 tab PO EVERY DAY ##0 12/18/07 07/19/22 History Topiramate (Topamax) 50 mg PO *Q DAY ##0 12/18/07 07/19/22 History tramadol 50 mg tablet 50 mg PO Q6H PRN pain #10 tabs 01/19/18 07/19/22 Rx ondansetron 4 mg disintegrating 4 mg PO Q6-8H PRN nausea and 04/27/18 07/19/22 Rx tablet vomiting #30 tabs sumatriptan succinate 25 mg tablet 25 mg PO ONCE #60 tabs 04/27/18 07/19/22 Rx Allergies Allergy/AdvReac Type Severity Reaction Status Date / Time Penicillins Allergy Severe anaphylaxis Verified 07/19/22 10:01 Review of Systems Review of Systems ROS: Yes All systems reviewed with the patient and are negative except as otherwise documented Exam Vital Signs (past 8 hours): - 03/18/24 00:06 03/18/24 00:06 03/18/24 00:30 Temperature Pulse Rate 75 76 Respiratory Rate 17 25 H Blood Pressure 154/82 H Pulse Oximetry 97 Oxygen Delivery Method Room Air Oxygen Flow Rate 03/18/24 00:30 03/18/24 01:00 03/18/24 01:01 Temperature Pulse Rate 75 75 Respiratory Rate 18 17 Blood Pressure 170/81 H Pulse Oximetry 95 95 Oxygen Delivery Method Room Air Oxygen Flow Rate 03/18/24 01:01 03/18/24 02:49 03/18/24 03:06 Temperature 97.6 F Pulse Rate 77 79 Respiratory Rate 18 18 Blood Pressure 149/76 H 141/73 H 135/91 H Pulse Oximetry 95 96 Oxygen Delivery Method Room Air Oxygen Flow Rate 0 03/18/24 03:06 Temperature Pulse Rate Respiratory Rate Blood Pressure Pulse Oximetry Oxygen Delivery Method Room Air Oxygen Flow Rate Oxygen Delivery Method Room Air Oxygen Flow Rate 0 Narrative Exam Narrative: GENERAL: Mild slurred speech, speech slow and seems to have difficulty with word findings. HEENT: Nonicteric sclerae, PERRLA, EOMI. Oropharynx clear. Moist mucous membranes. Conjunctivae appear well perfused. HEART: Regular rate and rhythm without murmurs. No lower extremities edema. LUNGS: Clear to auscultation bilaterally. No wheezing, crackles or rhonchi ABDOMEN: Soft, positive bowel sounds, nontender. SKIN: No rash, no excessive bruising, petechiae, or purpura. NEUROLOGIC: AxO x only to place and self but not date. Finger to nose slow and slightly not coordinated bilaterally but otherwise Cranial nerves II-XII intact without motor/sensory deficit. Objective Labs 03/18/24 05:40 03/18/24 05:40 Labs: Laboratory Results - last 24 hr 03/17/24 03/17/24 03/18/24 22:57 23:00 00:40 WBC 9.3 RBC 4.24 Hgb 13.0 Hct 39.1 MCV 92.3 MCH 30.6 MCHC 33.1 RDW 14.8 Plt Count 305 Neut % (Auto) 56.3 Lymph % (Auto) 29.9 [place] % (Auto) 6.9 Eos % (Auto) 6.3 H Baso % (Auto) 0.6 Neut # (Auto) 5200 Lymph # (Auto) 2800 [place] # (Auto) 600 Eos # (Auto) 600 H Baso # (Auto) 100 PT 10.4 INR 0.9 APTT 41 H Sodium 138 Potassium 4.3 Chloride 106 Carbon Dioxide 28 BUN 15 Creatinine 0.80 Estimated GFR > 60 BUN/Creatinine Ratio 18.8 Glucose 103 H Calcium 9.3 Magnesium 1.8 Total Bilirubin 0.5 AST 36 ALT 15 Alkaline Phosphatase 76 Ammonia < 9 L Total Creatine Kinase 67 Troponin I < 0.012 Total Protein 7.6 Albumin 4.3 Globulin 3.3 Albumin/Globulin Ratio 1.3 U Opiates 300ng/mL cut Negative Ur Oxycodone Screen Negative Urine Methadone Screen Negative Ur Barbiturates Screen Negative U Tricyclic Antidepress Positive H Ur Phencyclidine Scrn Negative Ur Amphetamines Screen Negative U Methamphetamines Scrn Negative Ur MDMA Scrn (Ecstasy) Negative U Benzodiazepines Scrn Negative Urine Cocaine Screen Negative U Marijuana (THC) Screen Negative Urine pH Normal Urine Specific [place] Normal Ethyl Alcohol < 10 Ur Creatinine Normal 03/18/24 05:40 WBC 7.1 RBC 3.74 L Hgb 11.4 L Hct 34.3 L MCV 91.7 MCH 30.6 MCHC 33.4 RDW 14.6 Plt Count 262 Neut % (Auto) 49.0 L Lymph % (Auto) 33.7 [place] % (Auto) 8.1 Eos % (Auto) 8.9 H Baso % (Auto) 0.3 Neut # (Auto) 3500 Lymph # (Auto) 2400 [place] # (Auto) 600 Eos # (Auto) 600 H Baso # (Auto) 0 PT INR APTT Sodium 139 Potassium 3.5 Chloride 108 H Carbon Dioxide 28 BUN 12 Creatinine 0.74 Estimated GFR > 60 BUN/Creatinine Ratio 16.2 Glucose 86 Calcium 8.6 Magnesium Total Bilirubin AST ALT Alkaline Phosphatase Ammonia Total Creatine Kinase Troponin I Total Protein Albumin Globulin Albumin/Globulin Ratio U Opiates 300ng/mL cut Ur Oxycodone Screen Urine Methadone Screen Ur Barbiturates Screen U Tricyclic Antidepress Ur Phencyclidine Scrn Ur Amphetamines Screen U Methamphetamines Scrn Ur MDMA Scrn (Ecstasy) U Benzodiazepines Scrn Urine Cocaine Screen U Marijuana (THC) Screen Urine pH Urine Specific [place] Ethyl Alcohol Ur Creatinine Assessment & Plan Assessment & Plan narrative: TIA/CVA ruleout with concerning symptoms of slurred speech, word finding difficulty and imbalance issues. Admit to medical telemetry under observation. As stated above will monitor patient overnight. CT and CTA of head are negative for acute findings. If patient symptoms do not improve consider getting brain MRI in AM to look for stroke that was not seen on CT scan. ASA. PT/OT/ST. Dehydration. IVF. DVT prophylaxis hep SQ Code status full code. Disposition likely home in 1 to 2 days Time-Based Coding :: [TOTAL MINUTES] spent with patient and on the chart (including review of chart, obtaining history, exam, reviewing outside data, placing orders, documenting exam and treatment plan, and counseling patient) on [DATE]. Quality VTE Deep Vein Thrombosis/Pulmonary Embolism Present on Admission: No
--- NOTE | 2024-03-18 07:44 | P.HP_ITS ---
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 Per the patient's daughters report, at baseline the patient does have some intermittent confusion from time to time. However two days ago the patient who lives alone at home was noted to sustained a fall. Patient daughter did come by and check and the patient report some left chest rib pain and admit that she hit her head but without any serious injury. The patient's daughter went back home and check on the patient today. However, today, the patient's daughter noticed that she was still confused with some slurred speech, word findings difficulty and along with some balance issues. Due to these ongoing symptoms, the patient's daughter decided to bring the patient into our ER for further evaluation. Otherwise there's no report any focal weakness or any serious injury. There's also no report any fever, chills, nausea, vomiting or diarrhea. In our emergency room, the patient was hemodynamically stable. NIH initial score was 3 per our ER physician assessment due to slurred speech and some poor coordination. CT and CTA of head and neck show no acute finding. Due to ongoing symptoms our physician requested admission to monitor overnight and if symptoms do not improve consider brain MRI in the morning. Note labs were all relatively benign including negative ammonia level. Additional information: [facility] Medical History Healthy adult Social History household members: none Smoking Status: Current every day smoker alcohol intake: current Meds Home Medications and Allergies Home Medications Medication Instructions Recorded Confirmed Type Control Pill ( Control) 1 tab PO EVERY DAY ##0 12/18/07 07/19/22 History Topiramate (Topamax) 50 mg PO *Q DAY ##0 12/18/07 07/19/22 History tramadol 50 mg tablet 50 mg PO Q6H PRN pain #10 tabs 01/19/18 07/19/22 Rx ondansetron 4 mg disintegrating 4 mg PO Q6-8H PRN nausea and 04/27/18 07/19/22 Rx tablet vomiting #30 tabs sumatriptan succinate 25 mg tablet 25 mg PO ONCE #60 tabs 04/27/18 07/19/22 Rx Allergies Allergy/AdvReac Type Severity Reaction Status Date / Time Penicillins Allergy Severe anaphylaxis Verified 07/19/22 10:01 Review of Systems Review of Systems Narrative: All else reviewed and otherwise unremarkable except as noted in the history and physical. Exam Vital Signs (past 8 hours): - 03/18/24 00:06 03/18/24 00:06 03/18/24 00:30 Temperature Pulse Rate 75 76 Respiratory Rate 17 25 H Blood Pressure 154/82 H Pulse Oximetry 97 Oxygen Delivery Method Room Air Oxygen Flow Rate 03/18/24 00:30 03/18/24 01:00 03/18/24 01:01 Temperature Pulse Rate 75 75 Respiratory Rate 18 17 Blood Pressure 170/81 H Pulse Oximetry 95 95 Oxygen Delivery Method Room Air Oxygen Flow Rate 03/18/24 01:01 03/18/24 02:49 03/18/24 03:06 Temperature 97.6 F Pulse Rate 77 79 Respiratory Rate 18 18 Blood Pressure 149/76 H 141/73 H 135/91 H Pulse Oximetry 95 96 Oxygen Delivery Method Room Air Oxygen Flow Rate 0 03/18/24 03:06 Temperature Pulse Rate Respiratory Rate Blood Pressure Pulse Oximetry Oxygen Delivery Method Room Air Oxygen Flow Rate Oxygen Delivery Method Room Air Oxygen Flow Rate 0 Narrative Exam Narrative: NAD, alert and oriented, fluent speech, calm. Normocephalic skull, EOMI, anicteric sclera, symmetric pupils. Oropharynx unremarkable, no droop. Neck supple, midline trachea, no adenopathy. Lungs clear, normal rate and effort. Heart regular, no murmur gallop or rub. Abdomen is soft, non distended and non tender. Extremities are free of edema. Skin is free of rash or lesions. Joints are not swollen or deformed. Judgment appears to be normal. Objective ECG Impression: Normal sinus rhythm Possible Anterior infarct , age undetermined Imaging Multiple studies:: Radiologist's impression: Head and neck CTA: Approximate 50% narrowing at the origin of the right internal carotid artery. Chest x-ray: No acute pulmonary process. Brain CT: No acute intracranial pathology. The above findings were discussed with Dr. Jen Cannon on 03/17/2024 at 11:28 p.m. This study fulfills neurological imaging criteria for inclusion or exclusion of acute stroke therapies based on available published neurological imaging guidelines. Labs 03/18/24 05:40 03/18/24 05:40 Labs: Laboratory Results - last 24 hr 03/17/24 03/17/24 03/18/24 22:57 23:00 00:40 WBC 9.3 RBC 4.24 Hgb 13.0 Hct 39.1 MCV 92.3 MCH 30.6 MCHC 33.1 RDW 14.8 Plt Count 305 Neut % (Auto) 56.3 Lymph % (Auto) 29.9 [place] % (Auto) 6.9 Eos % (Auto) 6.3 H Baso % (Auto) 0.6 Neut # (Auto) 5200 Lymph # (Auto) 2800 [place] # (Auto) 600 Eos # (Auto) 600 H Baso # (Auto) 100 PT 10.4 INR 0.9 APTT 41 H Sodium 138 Potassium 4.3 Chloride 106 Carbon Dioxide 28 BUN 15 Creatinine 0.80 Estimated GFR > 60 BUN/Creatinine Ratio 18.8 Glucose 103 H Calcium 9.3 Magnesium 1.8 Total Bilirubin 0.5 AST 36 ALT 15 Alkaline Phosphatase 76 Ammonia < 9 L Total Creatine Kinase 67 Troponin I < 0.012 Total Protein 7.6 Albumin 4.3 Globulin 3.3 Albumin/Globulin Ratio 1.3 U Opiates 300ng/mL cut Negative Ur Oxycodone Screen Negative Urine Methadone Screen Negative Ur Barbiturates Screen Negative U Tricyclic Antidepress Positive H Ur Phencyclidine Scrn Negative Ur Amphetamines Screen Negative U Methamphetamines Scrn Negative Ur MDMA Scrn (Ecstasy) Negative U Benzodiazepines Scrn Negative Urine Cocaine Screen Negative U Marijuana (THC) Screen Negative Urine pH Normal Urine Specific [place] Normal Ethyl Alcohol < 10 Ur Creatinine Normal 03/18/24 05:40 WBC 7.1 RBC 3.74 L Hgb 11.4 L Hct 34.3 L MCV 91.7 MCH 30.6 MCHC 33.4 RDW 14.6 Plt Count 262 Neut % (Auto) 49.0 L Lymph % (Auto) 33.7 [place] % (Auto) 8.1 Eos % (Auto) 8.9 H Baso % (Auto) 0.3 Neut # (Auto) 3500 Lymph # (Auto) 2400 [place] # (Auto) 600 Eos # (Auto) 600 H Baso # (Auto) 0 PT INR APTT Sodium 139 Potassium 3.5 Chloride 108 H Carbon Dioxide 28 BUN 12 Creatinine 0.74 Estimated GFR > 60 BUN/Creatinine Ratio 16.2 Glucose 86 Calcium 8.6 Magnesium Total Bilirubin AST ALT Alkaline Phosphatase Ammonia Total Creatine Kinase Troponin I Total Protein Albumin Globulin Albumin/Globulin Ratio U Opiates 300ng/mL cut Ur Oxycodone Screen Urine Methadone Screen Ur Barbiturates Screen U Tricyclic Antidepress Ur Phencyclidine Scrn Ur Amphetamines Screen U Methamphetamines Scrn Ur MDMA Scrn (Ecstasy) U Benzodiazepines Scrn Urine Cocaine Screen U Marijuana (THC) Screen Urine pH Urine Specific [place] Ethyl Alcohol Ur Creatinine Assessment & Plan Assessment & Plan narrative: 1. TIA/CVA ruleout with concerning symptoms of slurred speech, word finding difficulty and imbalance issues. Present on admission and active. Admit to medical telemetry under observation. As stated above will monitor patient overnight. CT and CTA of head are negative for acute findings. If patient symptoms do not improve consider getting brain MRI in AM to look for stroke that was not seen on CT scan. ASA. PT/OT/ST. 2. Dehydration. Present on admission and active. 3. TBI (remotely), present on admission and active. DVT prophylaxis hep SQ Code status full code. Disposition likely home in 1 to 2 days Time-Based Coding :: 35 min spent with patient and on the chart (including review of chart, obtaining history, exam, reviewing outside data, placing orders, documenting exam and treatment plan, and counseling patient) on 03/18. Quality VTE Deep Vein Thrombosis/Pulmonary Embolism Present on Admission: No MIPS - Admit I confirm the patient?s Advance Care Plan is present, Code status is documented, Surrogate decision maker is in patient?s record [If Yes, STOP here]: Yes MIPS - Meds 'Current medications' to include all prescriptions, [id number] products, herbals, cannabis/cannabidiol products, and vitamin/mineral/dietary (nutritional) supplements. I have utilized all available resources to obtain, update, or review the patient?s current medications. [If Yes, STOP here]: Yes
--- NOTE | 2024-03-18 07:49 | PC.NURSE ---
Admit/NOC Shift Note- Patient arrived to room via stretcher at 0300. Patient has history of tramatic brain injury. Patient easily distracted, forgetful and occasionally confused. Patient able to stated her name, birthday, current month, and current prsident. Not able to recall current town, state, or year. Patient also has history of word finding issues. Speech slurred. Counter Dish Carrier equal, no drift with legs or arms. No swallow issues. NIH= 2. Admit questions done to best of our ability, medications reviewed, physical assessment done, and skin check completed. Talked with patient about calling for assistence to get up to bathroom. Patient agrees each time but has not remembered to call for assistance at all. Bed alarm set. Call tellez and phone within reach. Will continue to monitor.
--- NOTE | 2024-03-18 07:51 | DI.MRI.S_ITS ---
PROCEDURE: MR HEAD/BRAIN WO CON INDICATIONS: AMS TECHNIQUE: Noncontrast axial T1 spin echo, axial T2 fast spin echo, sagittal and axial FLAIR, coronal T2 fast spin echo, axial gradient echo, axial diffusion and ADC through the brain. COMPARISON: [facility], CT, CT STROKE, 03/17/2024, 23:00. FINDINGS: Image quality: Excellent. CSF Spaces: Basal cisterns are patent. No extra-axial fluid collections. Ventricles are normal in size and shape. Brain: No intracranial masses or hemorrhage. Minimal chronic microvascular ischemic changes. Velásquez/white matter interface is normal. Brainstem appears normal. Diffusion-weighted images demonstrate no acute infarct. No chronic ischemic insults. Normal intravascular flow voids are present. Skull and face: Calvarium has normal marrow signal. Orbits appear normal. Sinuses: Diffuse paranasal sinus mucosal thickening. Left mastoid effusion. IMPRESSION: No acute or subacute infarct. No acute intracranial abnormalities. Mild age-related chronic microvascular ischemic changes. Diffuse paranasal sinus mucosal disease. Dictated by: Thom Us M.D. on 03/18/2024 at 10:35 Approved by: Thom Us M.D. on 03/18/2024 at 10:37
[2024-03-18] MEDS: ASPIRIN EC 81 MG TABLET PO (09:09)
[2024-03-18] MEDS: HEPARIN 5,000 UNIT/ML VIAL 5000 UNIT SUBCUT (09:09)
--- NOTE | 2024-03-18 09:51 | SLP.IPNOTE ---
PROTOTYPE TECHNICIAN attempted evaluation at 0947. Pt was being transferred for transport to MRI. Will re-attempt if ST schedule allows.
[2024-03-18] MEDS: POTASSIUM CHLORIDE 20 MEQ TAB 40 MEQ PO (10:19)
--- NOTE | 2024-03-18 10:45 | PT.IIE ---
Medical History (Last Reviewed 03/18/24 @ 07:46 by Sami Mota MD) Healthy adult Physical Therapy Inpatient Evaluation/Re-Eval M1 PT/OT-IP Prior Functional Status Start: 03/18/24 12:57 Freq: NEEDED Status: Active Protocol: Document 03/18/24 10:45 AB (Rec: 03/18/24 13:10 AB [id number]) Medical Review Prior Functional Status Medical History Reviewed Yes Communication able to make needs known; has some difficulty with word finding Mobility and Gait pt stated that she was independent with all mobiltiies and ambulation without AD; h/o falls: has 8- 10 falls so far this year Social History Household Members none Living Arrangements House Number of Floors (Floors) One Floor Number of Stairs To Enter/Railing? 2 steps + 3 steps without rails to enter the house Home Environment Standard Height Toilet,Walk in Shower,Tub/Shower,Tub/Shower Doors Home Equipment Hand Held Shower Additional Social History Comment pt stated that her daughter checks on her daily M2 PT-IP Current Condition Start: 03/18/24 12:57 Freq: NEEDED Status: Active Protocol: Document 03/18/24 10:45 AB (Rec: 03/18/24 13:10 AB [id number]) Physical Therapy Current Condition Current Condition Evaluation Date 03/18/24 Treatment Diagnosis AMS; r/o CVA; difficulty in walking Onset Date 03/18/24 M3 PT-IP Subjective Start: 03/18/24 12:57 Freq: NEEDED Status: Active Protocol: Document 03/18/24 10:45 AB (Rec: 03/18/24 13:10 AB [id number]) Subjective Physical Therapy Visit Type Type Initial Evaluation Visit Start Time 10:45 Visit Stop Time 11:25 Number of LINEMAN Visits 0 Physical Therapy Visit Comments Patient Comments agreeable to do PT M4 PT-IP Mobility and Gait Start: 03/18/24 12:57 Freq: NEEDED Status: Active Protocol: Document 03/18/24 10:45 AB (Rec: 03/18/24 13:10 AB [id number]) PT-Bed Mobility Assessment Supine to Sit Supine to Sit Independent Sit to Supine Sit to Supine Independent PT-Transfer Assessment Sit to and From Stand Sit to and from Stand Standby Assistance,1 Person Assistance,Use of Upper Extremities Equipment Transfer Assistive Device None,Gait Belt Transfers Transfer Destination Bed Transfer Technique ambulated Transfer Ability Level of Assist Standby Assistance,Contact Guard Assistance,1 Person Assistance,Use of Upper Extremities Comments Mobility Comments pt sitting up on the chair and agreeable to do PT. obtained PLOF and home setup. pt completed sit to stand SBA and ambulated in room without AD SBA to CGA and cues for safety . (+) LOB x 2 but with recovery. pt can be impulsive . pt sat on EOB and completed bed mobility sit <> supine mod I. pt transferred back to chair SBA. completed up/down step stool without AD min A and cues. assessed ambulation using FWW and completed SBA to CGA. cued for use of FWW. pt tends to run into things with FWW. presents with steadier gait with FWW but will need more training. pt sat back on the chair. positioned pt on the chair. call light and table placed within reach. Gait Assessment Gait Gait Assistance Required: Standby Assistance,Contact Guard Assist Distance (Feet) 40 Able to Maintain Weight Bearing Status Yes During Gait Assistive Devices Assistive Device None,Gait Belt,Front Wheeled Walker Orthotic/Prosthetic Devices or Brace: No Gait Deviations General Gait Pattern Ataxic Factors Limiting Gait Function Factors Limiting Gait Function Decreased Activity Tolerance, Decreased Strength,Difficulty Following Directions,Limited Range of Motion,Poor Balance, Poor Safety Awareness Stair Climbing Assessment Evaluation Level of Assist On Stairs Minimal Assistance Devices Stair Climbing Assistive Devices None Technique/Endurance Stair Climbing Direction Ascend and Descend Stair Climbing Technique Step to Step Number of Steps Climbed 1 Query Text: Stair Climbing Set # Repetitions (reps) 3 PT-Balance Assessment Sitting Balance and Reactions Static Sitting Balance Ability Normal Dynamic Sitting Balance Ability Good Standing Balance and Reactions Static Standing Balance Ability Fair Dynamic Standing Balance Ability Fair Device Used without AD M5 PT-IP Objective Assessments Start: 03/18/24 12:57 Freq: NEEDED Status: Active Protocol: Document 03/18/24 10:45 AB (Rec: 03/18/24 13:10 AB [id number]) Orientation Orientation/Cognition Level of Alertness Alert Orientation Name,Place,Situation Language Function Ability Word Finding Difficulties Safety Awareness Decreased Safety Awareness Memory Description Short Term Impaired Gross Range of Motion Lower Extremity ROM Assessment Within Functional Limits Strength Lower Extremity Strength Assessment Bilaterally Impaired Comments Strength Comments RLE: 4-/5 LLE: 3+/5 Coordination Assessment Gross Coordination Gross Coordination WNL Sensation Assessment Sensation Gross Sensation WNL Muscle Tone Muscle Tone WNL Yes M6 PT-IP Treatment Start: 03/18/24 12:57 Freq: NEEDED Status: Active Protocol: Document 03/18/24 10:45 AB (Rec: 03/18/24 13:10 AB [id number]) Physical Therapy Treatment Education Education Provided Safety M7 PT-IP Assessment and Plan Start: 03/18/24 12:57 Freq: NEEDED Status: Active Protocol: Document 03/18/24 10:45 AB (Rec: 03/18/24 13:10 AB [id number]) PT Summary Assessment and Plan Potential Rehabilitation Potential Fair Status of Condition at Evaluation Evolving Summary Impairments Pain,ROM,Strength,Balance, Coordination,Sensation,Tone, Cognition,Bed Mobility, Transfers,Gait,Activity Tolerance Assessment Summary pt is a 58 y/o F who presented to the ED for AMS. pt admitted to r/o CVA. pt with h/o multiple TBIs and is impulsive and has frequent falls at home. pt requiring SBA to CGA with ambulation without AD with (+) LOB and cues for safety. assess ambulation with FWW and pt with steadier gait but will need more training with FWW as pt tends to run into things with FWW. pt will benefit from HHPT. Goals Bed Mobility Goal Independent Transfer Goal Independent Gait Goal Independent Gait Distance 200 Other Goals up/down 5 steps without rails SBA Days to Meet Goals 5 Frequency of Treatment Frequency Of Treatment Once a Day Treatment Plan Physical Therapy Treatment Plan Bed Mobility Training,Transfer Training,Gait Training, Therapeutic Exercise,Balance Retraining,Discharge Planning, Hot or Cold Pack,Neuromuscular Re-ed,Coordination Retraining Precautions Other Precautions falls Recommendations To Nursing Amount of Assist Needed 1 Person Assist Discharge Recommendations PT Discharge Recommendations Home with 13/11 Assist Available,Home Health Transportation Needs at Discharge Private Vehicle
--- NOTE | 2024-03-18 12:16 | PM.DS.1 ---
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 Per the patient's daughters report, at baseline the patient does have some intermittent confusion from time to time. However two days ago the patient who lives alone at home was noted to sustained a fall. Patient daughter did come by and check and the patient report some left chest rib pain and admit that she hit her head but without any serious injury. The patient's daughter went back home and check on the patient today. However, today, the patient's daughter noticed that she was still confused with some slurred speech, word findings difficulty and along with some balance issues. Due to these ongoing symptoms, the patient's daughter decided to bring the patient into our ER for further evaluation. Otherwise there's no report any focal weakness or any serious injury. There's also no report any fever, chills, nausea, vomiting or diarrhea. In our emergency room, the patient was hemodynamically stable. NIH initial score was 3 per our ER physician assessment due to slurred speech and some poor coordination. CT and CTA of head and neck show no acute finding. Due to ongoing symptoms our physician requested admission to monitor overnight and if symptoms do not improve consider brain MRI in the morning. Note labs were all relatively benign including negative ammonia level. Additional information: The patient has history of TBI and she lives alone but near her daughter. Her daughter and I talked to the phone for some time and the daughter's main concern was a change of general speech patterns and possibly cognition and other actions over the last unclear period of time. There is not really a big concern for an acute event such as stroke however the patient's daughter does understand that the progression of her cognitive effects of her TBI are somewhat unpredictable. Recently, the daughter has been making attempts with the [facility] to resource caregiving in the home to provide more support. She was also installed cameras. Discharge Providers Provider Date of admission: 03/18/24 01: Discharge Date: 03/18/24 Primary care physician: Doctor Neeraj MD Consults: 03/18/24 01:29 Consult to Occupational Therapy Evaluate & Treat Comment: Physician Instructions: Evaluate and treat Consult to Physical Therapy Evaluate & Treat Comment: Physician Instructions: Evaluate and Treat 03/18/24 01:31 Consult to Speech Therapy Evaluate & Treat Comment: Physician Instructions: Evaluate and treat Discharge provider: Sami Mota MD Summary Hospital Course Discharge Diagnosis: 1. TIA/CVA ruled out with concerning symptoms of slurred speech, word finding difficulty and imbalance issues. Possible progression of her TBI symptoms. Present on admission and active. 2. Dehydration. Present on admission and improved. 3. TBI (remotely), present on admission and active. Hospital Course: The patient had no evidence of infection based on her feet laboratories or imaging. The patient had no symptoms that she shared that sounded like an infection. She did note a fall off her couch several days prior with her dog but denied any persistent injuries. She did undergo imaging for TIA stroke rule out including a negative CTA and negative brain MRI. Ultimately it was felt that she was likely at or near her baseline and reasonably stable for discharge home. It does seem that her daughter is concerned about her level of function and a living independently. The daughter is currently trying to resource caregivers in the home and make other measures that might provide more ability to monitor the patient's while being in her home. This includes recent instillation of cameras. Status at Discharge Cognitive/behavioral status at discharge: at baseline, oriented Functional status at discharge: independent ambulation Overall status at discharge: patient is back to baseline Time Spent with Patient Time spent: Greater than 30 minutes Exam Vital Signs (past 8 hours): - 03/18/24 10:00 Temperature 97.5 F L Pulse Rate 84 Respiratory Rate 16 Blood Pressure 163/106 H Pulse Oximetry 97 Oxygen Flow Rate 0 Oxygen Delivery Method Room Air Oxygen Flow Rate 0 Narrative Exam Narrative: NAD, alert and oriented. Fluent speech. She does have cognitive impairment and her line of thinking is not completely consistent which I assume is her baseline. Lungs are clear, normal rate and effort. Heart is regular, no murmur gallop or rub. Abdomen is soft, non distended. Extremities are free of edema. Objective ECG Impression: Normal sinus rhythm Possible Anterior infarct , age undetermined Imaging Multiple studies:: Radiologist's impression: Brain MRI: No acute or subacute infarct. No acute intracranial abnormalities. Mild age-related chronic microvascular ischemic changes. Diffuse paranasal sinus mucosal disease. Head and neck CTA: Approximate 50% narrowing at the origin of the right internal carotid artery. Chest x-ray No acute pulmonary process. Brain CT: No acute intracranial pathology. The above findings were discussed with Dr. Jen Cannon on 03/17/2024 at 11:28 p.m. Labs 03/18/24 05:40 03/18/24 05:40 Labs: Laboratory Results - last 24 hr 03/17/24 03/17/24 03/18/24 22:57 23:00 00:40 WBC 9.3 RBC 4.24 Hgb 13.0 Hct 39.1 MCV 92.3 MCH 30.6 MCHC 33.1 RDW 14.8 Plt Count 305 Neut % (Auto) 56.3 Lymph % (Auto) 29.9 [place] % (Auto) 6.9 Eos % (Auto) 6.3 H Baso % (Auto) 0.6 Neut # (Auto) 5200 Lymph # (Auto) 2800 [place] # (Auto) 600 Eos # (Auto) 600 H Baso # (Auto) 100 PT 10.4 INR 0.9 APTT 41 H Sodium 138 Potassium 4.3 Chloride 106 Carbon Dioxide 28 BUN 15 Creatinine 0.80 Estimated GFR > 60 BUN/Creatinine Ratio 18.8 Glucose 103 H Calcium 9.3 Magnesium 1.8 Total Bilirubin 0.5 AST 36 ALT 15 Alkaline Phosphatase 76 Ammonia < 9 L Total Creatine Kinase 67 Troponin I < 0.012 Total Protein 7.6 Albumin 4.3 Globulin 3.3 Albumin/Globulin Ratio 1.3 U Opiates 300ng/mL cut Negative Ur Oxycodone Screen Negative Urine Methadone Screen Negative Ur Barbiturates Screen Negative U Tricyclic Antidepress Positive H Ur Phencyclidine Scrn Negative Ur Amphetamines Screen Negative U Methamphetamines Scrn Negative Ur MDMA Scrn (Ecstasy) Negative U Benzodiazepines Scrn Negative Urine Cocaine Screen Negative U Marijuana (THC) Screen Negative Urine pH Normal Urine Specific [place] Normal Ethyl Alcohol < 10 Ur Creatinine Normal 03/18/24 05:40 WBC 7.1 RBC 3.74 L Hgb 11.4 L Hct 34.3 L MCV 91.7 MCH 30.6 MCHC 33.4 RDW 14.6 Plt Count 262 Neut % (Auto) 49.0 L Lymph % (Auto) 33.7 [place] % (Auto) 8.1 Eos % (Auto) 8.9 H Baso % (Auto) 0.3 Neut # (Auto) 3500 Lymph # (Auto) 2400 [place] # (Auto) 600 Eos # (Auto) 600 H Baso # (Auto) 0 PT INR APTT Sodium 139 Potassium 3.5 Chloride 108 H Carbon Dioxide 28 BUN 12 Creatinine 0.74 Estimated GFR > 60 BUN/Creatinine Ratio 16.2 Glucose 86 Calcium 8.6 Magnesium Total Bilirubin AST ALT Alkaline Phosphatase Ammonia Total Creatine Kinase Troponin I Total Protein Albumin Globulin Albumin/Globulin Ratio U Opiates 300ng/mL cut Ur Oxycodone Screen Urine Methadone Screen Ur Barbiturates Screen U Tricyclic Antidepress Ur Phencyclidine Scrn Ur Amphetamines Screen U Methamphetamines Scrn Ur MDMA Scrn (Ecstasy) U Benzodiazepines Scrn Urine Cocaine Screen U Marijuana (THC) Screen Urine pH Urine Specific [place] Ethyl Alcohol Ur Creatinine [facility] Medical History Healthy adult Social History household members: none Smoking Status: Current every day smoker alcohol intake: current Discharge Assessment & Plan Assessment and Plan Assessment: 1. TIA/CVA ruled out with concerning symptoms of slurred speech, word finding difficulty and imbalance issues. Possible progression of her TBI symptoms. Present on admission and active. 2. Dehydration. Present on admission and improved. 3. TBI (remotely), present on admission and active. Plan of Treatment: She appears to be at her baseline, and stable for discharge home. I discussed this with her daughter in the phone and they are planning on trying to increase caregiver at home while working with [facility] benefits and other programs available to them. Daughter will cherry picker operator the patient. No medication changes at this time. Discharge Plan Discharge Plan Patient Disposition: Home Provider Discharge Comment: Brain imaging normal, discuss situation with daughter. The patient was stable for return home. We will start a blood pressure pill. Discharge orders & Medications Prescriptions: New amlodipine 2.5 mg tablet 2.5 mg PO DAILY Qty: 30 2RF Continued omeprazole 20 mg Capsule,Delayed Release(Dr/Ec) 20 mg PO AC PRN (Reason: Acid Reflux) amitriptyline 100 mg Tablet 100 mg PO BEDTIME PRN (Reason: Insomnia) Follow up/Referrals: Neeraj,Doctor, MD [Primary Care Provider] - Discharge Health Status Multidrug resistant organism: No MDRO Diet/Activity/Treatments Diet: Regular Activity: As tolerated. Visit Report/Discharge Packet Instructions: Essential Hypertension, How to Prevent Falls, Amlodipine Stand Alone Forms: Patient Portal/API Discharge Data Primary Care Provider: Neeraj,Doctor Attending Provider: Jerry Chacon Admit Date/Time: 03/18/24 01:31 Quality VTE Deep Vein Thrombosis/Pulmonary Embolism Present on Admission: No
[2024-03-18] MEDS: AMLODIPINE 5 MG TABLET 2.5 MG PO (12:26)
--- NOTE | 2024-03-18 13:33 | CM.DANOTE ---
Initial DCP Assessment Visit Note Reviewed EMR and team rounds for status updates. Did not meet with pt f/f as she was working with OT at the time of this visit. Pt resides independently in her own home in [place], her dtr checks on her daily, and assists with transportation and care coordination needs. No CM d/c assistance needs are identified at this time. Payor: Rodri Boothe PCP: Not Identified Pt is a 58 year-old F with a hx of TBI presented to the ED yesterday afternoon with family who state that pt is more mentally altered, is slurring her words, and is having difficulty with word processing. MRI did not show any abnormal brain abnormalities, however is was assumed that she had either a TIA or CVA event. Pt was placed in OBS for telemetry and continued observation. Today, pt is much improved, her speech and cognition have returned to baseline, and she was medically cleared for home d/c. Her dtr will be transporting her home. Discharge Planning/Care Management CM Discharge Assessment Start: 03/18/24 13:24 Freq: Status: Active Protocol: Document 03/18/24 13:28 DPL (Rec: 03/18/24 13:31 DPL [id number]) Discharge Planning Assessment Assigned Source Water Protection Specialist GAGE Lynne Advance Directives? No History Provided By Medical Record Expected Length of Stay 1 Has Patient been admitted in last 30 No days? Prior Living Arrangements House Household Members none Type of transporation used prior to Relies on Others admit Comment Pt's dtr assists with transportation Independent with ADL's Yes Is patient alert and oriented? Yes Comment N/A Caregiver for Another No Comment No AD at baseline. Comment No identified home d/c needs at this time. Barriers to Discharge No Discharge Plan Home Transportation Arrangement Daughter Referrals Initiated None needed Review Status In Process Please Provide Date Initial DC 03/18/24 Assessment Was Performed
--- NOTE | 2024-03-18 13:52 | OT.IP.EVAL ---
Past Medical History (Last Reviewed 03/18/24 @ 07:46 by Sami Mota MD) Healthy adult Occupational Therapy Inpatient Evaluation/Re-Eval M1 PT/OT-IP Prior Functional Status Start: 03/18/24 12:57 Freq: NEEDED Status: Active Protocol: Document 03/18/24 13:26 CEASAR (Rec: 03/18/24 13:52 KYLERCOX BRANSONJERALD [id number]) Medical Review Prior Functional Status Medical History Reviewed Yes Communication able to make needs known; has some difficulty with word finding Mobility and Gait pt stated that she was independent with all mobilities and ambulation without AD; h/o falls: has 8- 10 falls so far this year Activities of Daily Living and IADL's pt reports that her daughter assists with her showers, ADLs , cooking, and cleaning. on phone call, dtr confirms this to be accurate. pt reports that she sleeps in her recliner due to acid reflux. Prior Functional Level (Other details) pt has large dog (mastiff) and a cat at home. pt does not drive. Social History Household Members none Living Arrangements House Number of Floors (Floors) One Floor Number of Stairs To Enter/Railing? 2 steps + 3 steps without rails to enter the house Home Environment Standard Height Toilet,Walk in Shower,Tub/Shower,Tub/Shower Doors Home Equipment Hand Held Shower Additional Social History Comment pt stated that her daughter checks on her daily M1 PT/OT-IP Prior Functional Status Start: 03/18/24 13:25 Freq: NEEDED Status: Active Protocol: Document 03/18/24 13:26 CEASAR (Rec: 03/18/24 13:52 KYLERCOX BRANSONJERALD [id number]) Medical Review Prior Functional Status Medical History Reviewed Yes Communication able to make needs known; has some difficulty with word finding Mobility and Gait pt stated that she was independent with all mobilities and ambulation without AD; h/o falls: has 8- 10 falls so far this year Activities of Daily Living and IADL's pt reports that her daughter assists with her showers, ADLs , cooking, and cleaning. on phone call, dtr confirms this to be accurate. pt reports that she sleeps in her recliner due to acid reflux. Prior Functional Level (Other details) pt has large dog (mastiff) and a cat at home. pt does not drive. Social History Household Members none Living Arrangements House Number of Floors (Floors) One Floor Number of Stairs To Enter/Railing? 2 steps + 3 steps without rails to enter the house Home Environment Standard Height Toilet,Walk in Shower,Tub/Shower,Tub/Shower Doors Home Equipment Hand Held Shower Additional Social History Comment pt stated that her daughter checks on her daily M2 OT-IP Current Condition Start: 03/18/24 13:25 Freq: Status: Active Protocol: Document 03/18/24 13:26 CEASAR (Rec: 03/18/24 13:52 [facility] [id number]) Occupational Therapy Current Condition Current Condition Evaluation Date 03/18/24 Treatment Diagnosis r/o CVA, dehydration M3 OT- IP Subjective and Pain Start: 03/18/24 13:25 Freq: Status: Active Protocol: Document 03/18/24 13:26 KYLERJOLIESHAHIDAJERALD (Rec: 03/18/24 13:52 [facility] [id number]) OT- Subjective Occupational Therapy Visit Type Type Initial Evaluation Visit Start Time 09:10 Visit Stop Time 09:43 Notes pt sitting up in bed with nurse giving medication. pt agreeable to participating in skilled OT eval. Occupational Therapy Visit Comments Patient Comments pt has a difficult time completing a thought or sentence. she frequently interrupts herself stating where am I at again. she is A &O to name, place, and year. OT Pain Assessment Pain When Pain Assessed At Rest Pain Present Pain Present Pain Reported Location Lower Back Intensity 3 Scale Used Numeric (0 - 10) M4 OT- IP ADL's Start: 03/18/24 13:25 Freq: Status: Active Protocol: Document 03/18/24 13:26 CEASAR (Rec: 03/18/24 13:52 [facility] [id number]) OT AIW-Rcci-Sifhrtv General Evaluation Diet Level for Self-Feeding not observed OT ADL-Grooming General Evaluation Grooming Ability Contact Guard Assistance Areas Needing Assistance Retrieving/Set-up of Grooming Items Comments OT Grooming Comments pt stands sink side to perform . she requires assist in gathering items and to set items aside when finished in order to transition to next task. OT ADL-Oral Care General Eval Oral Care Ability Contact Guard Assistance Areas of Assistance Retrieving/Set-Up of Items Comments Oral Care Comments pt stands sink side to perform . she requires assist to gather items and assist to transition out of task. OT ADL-Dressing General Eval Upper Body Dressing Ability Contact Guard Assistance Lower Body Dressing Ability Contact Guard Assistance Comments OT Dressing Comments performed while seated with assist for safety as pt is very quick and impulsive. OT ADL-Toileting General Evaluation Toileting Ability Contact Guard Assistance Devices Toileting Assistive Devices Commode,Grab Bars Comments OT Toileting Comments pt performs task without assistance. she needs vcs/tcs for safety awareness, especially with respect to IV pole as pt quickly tangles herself in the IV cord. OT ADL-Bathing Comments OT Bathing Comments not observed M5 OT- IP IADL's Start: 03/18/24 13:25 Freq: Status: Active Protocol: Document 03/18/24 13:26 CEASAR (Rec: 03/18/24 13:52 [facility] [id number]) OT-Instrumental Activities of Daily Living Deficits IADL Deficits Identified Deficits Home Safety Awareness Awareness of Need for Assistance at Home Good Awareness Ability to Problem Solve Emergency Unable to Problem Solve Situations Medication Management Medication Management Comments dtr reports pt has been I with this task Money Management Money Management Caregiver Provides Supervision Meal Preparation Meal Preparation Caregiver Provides Assist Evs Tech Evs Tech Caregiver Provides Assist Driving Driving Caregiver Provides Assist M6 OT- IP Functional Cognition Start: 03/18/24 13:25 Freq: Status: Active Protocol: Document 03/18/24 13:26 CEASAR (Rec: 03/18/24 13:52 [facility] [id number]) Cognitive Factors Limiting Selfcare Function Cognitive Ability Level of Alertness Alert Patient Orientation Name,Birthday,Year,Place Attention Span Ability Unable to Focus,Unable to Sustain Attention Ability to Follow Commands Able to Follow One Step Commands with Repetition Memory Description Short Term Impaired,Shipping Weigher Impaired Problem Solving Ability Unable to Identify Errors, Needs Assist to Identify Solutions Executive Function Ability Unable to Filter Distractions Cognitive Comments Cognitive Assessment Comments pt demonstrates impulsivity and decreased safety awareness , especially of environment. pt is states month incorrectly as January, is unable to state date, but is able to correctly name the year and place. pt may benefit from further cognitive assessments. it is unclear how much of this is baseline for pt. OT- Vision and Hearing OT- Hearing Assessment OT- Hearing Assessment WFL OT- Vision Assessment Visual Acuity WFL M7 OT- IP Mobility and Balance Start: 03/18/24 13:25 Freq: Status: Active Protocol: Document 03/18/24 13:26 CEASAR (Rec: 03/18/24 13:52 [facility] [id number]) OT- Bed Mobility Assessment Supine to Sit Supine to Sit Assist Independent Scooting Scooting to Edge of Bed Independent OT-Transfer Assessment Sit to and From Stand Sit to and from Stand Standby Assistance,Contact Guard Assistance Transfers Transfer Ability Standby Assistance,Contact Guard Assistance Technique Transfer Destination Chair,Toilet Transfer Technique Stand Step Pivot Devices Transfer Assistive Devices Gait Belt,Front Wheeled Walker Comments Mobility Comments pt performs functional t/fs and mobility impulsively and quickly. OT- Gait Assessment Gait Gait Assistance Required: Standby Assistance,Contact Guard Assist Distance (Feet) 20 Assistive Devices Assistive Device Gait Belt,4 Wheeled Walker Comments Gait Ability Comments pt would not follow commands for using FWW. pt would leave behind her IV pole and would get herself tangled in the cording, requiring frequent vc /tc to remedy. pt sat on commode side ways initially and attempts to step over obstacles rather than walking around them despite the path being clear in that direction. OT- Balance Assessment Sitting Balance and Reactions Static Sitting Balance Ability Good Dynamic Sitting Balance Ability Good Standing Balance and Reactions Static Standing Balance Ability Fair Dynamic Standing Balance Ability Fair M8 OT- IP Objective Assessments Start: 03/18/24 13:25 Freq: Status: Active Protocol: Document 03/18/24 13:26 KYLERALON (Rec: 03/18/24 13:52 [facility] [id number]) OT Gross Range of Motion Upper Extremity Range of Motion Assessment Within Functional Limits OT Strength Upper Extremity Strength Assessment Within Functional Limits OT- Coordination Assessment Upper Extremity Finger to Nose Test Bilateral UE Impaired Finger Tapping Test Bilateral UE Impaired M9 OT- IP Assessment and Plan Start: 03/18/24 13:25 Freq: Status: Active Protocol: Document 03/18/24 13:26 KYLERJOLIESHAHIDAJERALD (Rec: 03/18/24 13:52 [facility] [id number]) OT Summary Assessment and Plan Potential Rehabilitation Potential Fair Analytic Complexity at Evaluation Moderate Summary OT Impairments Balance,Coordination, Functional Cognition,Grooming, Dressing,Toileting,Bathing, Toilet Transfers,Shower Transfers Progress Towards Goals Slow Progress due to Cognition Assessment Summary pt is 58 yo F who presented to ED due to increase confusion, dysarthria, and imbalance. pt with c/o recent falls. CT showed now acute change and CTA showed 50% narrowing at the origin of R ICA. pt has h/ o multiple TBIs. per dtr, pt is scheduled to have a [facility] with [facility] to [facility] her balance and memory with respect to her existing TBI. pt is impulsive and has decreased safety awareness. pt requires SBA/CGA with all tasks due to this. pt also needs cues to assist her in starting and stopping tasks. pt is pleasant and cooperative and appears eager to participate in skilled OT services. pt will benefit from skilled OT services on d/c . Goals Self-Feeding Goal Independent Grooming Goal Independent Dressing Goal Independent Toileting Goal Independent Bathing Goal Independent Toilet Transfer Goal Independent Shower Transfer Goal Contact Guard Assistance Days to Meet Goals 5 Frequency of Treatment Frequency Of Treatment Once a Day Treatment Plan OT Treatment Plan ADL Training,Functional Cognition Training,Functional Mobility,Therapeutic Exercises ,Patient/Family Education, Discharge Planning Discharge Recommendations OT Discharge Recommendations Home with 24/7 Assist Available,Home Health Transportation Needs at Discharge Private Vehicle,Wheelchair/ Cabulance
--- NOTE | 2024-03-18 14:28 | PC.NURSE ---
Pt is dressed and ready for discharge home with Daughter Amy. IV has been removed. D/C instructions reviewed with Pt and Daughter-discussed new medications and time of last dose, Pt to follow up as recommended. Encouraged Pt to get up from laying or sitting slowly and move with caution to prevent falls. Pt denied further questions and was taken out via w/c by OLGA Joyner with family and all belongings.
== END 2024-03-18 13:39 | disposition home or self-care (01) ==
LOC: ED 22:50 → AC 03-18 01:32
PROVIDERS: Admitting Provider Internal Medicine; Emergency Provider Emergency Medicine; Referring Provider Emergency Medicine; Visit Provider Internal Medicine
DX: R41.0 Disorientation, unspecified (principal); R47.81 Slurred speech; R29.703 NIHSS score 3; E86.0 Dehydration; Z87.820 Personal history of traumatic brain injury
CPT/HCPCS: 36415; 70450; 70496; 70498; 70551; 71045; 80048; 80053; 80305; 80320; 81003; 82140; 82550; 82962; 83735; 84484; 85025; 85610; 85730; 93005; 96360; 96361; 96372; 97116; 97162; 97166; 99284; G0378; J1644; Q9967